=== PATIENT | female | born 1995 | race Caucasian/White ===

== ENCOUNTER → 2018-05-19 12:09 | Outpatient (REF) | payer MEDICAID, SELFPAY ==
[2018-05-19 14:25] LABS: Basophils % 0.2 % (0.1-2.0); Eosinophils # 0.1 K/mm3 (0.0-0.4); Eosinophils % 0.9 % (0.1-12.0); Hematocrit 43.8 % (37.0-47.0); Hemoglobin 14.1 g/dL (12.2-16.2); Lymphocytes # 2.8 K/mm3 (0.7-4.5); Lymphocytes % 31.7 K/mm3 (10-50); Mean Corpuscular HGB Conc 32.1 g/dL (31.8-35.4); Mean Corpuscular Hemoglobin 26.7 pg (27.0-31.2); Mean Corpuscular Volume 83.3 fl (81-99); Mean Platelet Volume 8.5 fl (7.4-10.4); Monocytes # 0.3 K/mm3 (0.1-1.0); Monocytes % 3.1 % (1.7-9.3); Neutrophils # 5.8 K/mm3 (1.8-7.8); Neutrophils % 64.1 % (37.0-80.0); Platelet Count 358 K/mm3 (142-424); Red Blood Count 5.26 M/mm3 (4.20-5.40); Red Cell Distribution Width 13.1 % (11.5-17.5)
[2018-05-19 14:34] LABS: Chol/HDL Ratio 3.8 (1-3.5); Cholesterol 196 mg/dL (140-200); HDL Cholesterol 52 mg/dL (29-89); LDL Cholesterol 114 mg/dL (0-130); Triglycerides 148 mg/dL (30-200); VLDL Cholesterol 30 mg/dL (0-40)
[2018-05-19 15:32] LABS: Alanine Aminotransferase 26 U/L (12-78); Albumin/Globulin Ratio 1.1 (1.1-1.8); Alkaline Phosphatase 74 U/L (46-116); Anion Gap 14.4 mEq/L (5-15); Aspartate Amino Transferase 15 U/L (15-37); Bilirubin,Total 0.3 mg/dL (0.2-1.0); Blood Urea Nitrogen 10 mg/dL (7-18); C-Reactive Protein 0.7 mg/L (0.0-0.9); Calcium 9.3 mg/dL (8.5-10.1); Carbon Dioxide 27 mmol/L (21.0-32.0); Chloride 105 mmol/L (98-107); Estimated Glomerular Filt Rate 105 ml/min (>60); GFR (African American) 127 ML/MIN (>60); Globulin 3.8 gm/dl (1.3-3.2); Glucose 110 mg/dL (74-106); Potassium 4.4 mmoL/L (3.5-5.1); Sodium 142 mmol/L (136-145); T4 (Thyroxine) 10.7 ug/dl (4.7-13.3); Thyroid Stimulating Hormone 1.68 uIU/ml (0.358-3.740); Total Protein,Serum 7.8 gm/dL (6.4-8.2)
[2018-05-19 15:51] LABS: Erythrocyte Sedimentation Rate 15 mm/hr (0-20)
[2018-05-21 12:40] LABS: RA Latex Turbid. <10.0 IU/mL (0.0-13.9); Vitamin D 25 Hydroxy 19.4 ng/mL (30.0-100.0)
[2018-05-21 14:15] LABS: Anti-Jo-1 <0.2 AI (0.0-0.9); Anti-Smith Antibody <0.2 AI (0.0-0.9); Antichromatin Antibodies <0.2 AI (0.0-0.9); Antiscleroderma-70 Antibodies <0.2 AI (0.0-0.9); RNP Antibodies <0.2 AI (0.0-0.9); Sjogren's Anti-SS-A <0.2 AI (0.0-0.9); Sjogren's Anti-SS-B <0.2 AI (0.0-0.9)
[2018-05-22 07:35] LABS: Anti-Centromere B Antibodies <0.2 AI (0.0-0.9); Anti-DNA (DS) Ab Qn <1 IU/mL (0-9)
[2018-05-23 07:01] LABS: Anti-Cyclic Citrullinated Pept 6 units (0-19)
== END ==
LOC: LAB 12:09
PROVIDERS: Visit Provider Physician Assistant
DX: R42 Dizziness and giddiness (principal); Z83.2 Family history of diseases of the blood and blood-forming organs and certain disorders involving the immune mechanism
CPT/HCPCS: 80053; 80061; 82652; 84436; 84443; 85025; 85651; 86140; 86200; 86225; 86235; 86431

== ENCOUNTER → 2019-11-26 16:35 | Outpatient (CLI) | payer MEDICAID, SELFPAY ==
[2019-11-26 17:50] LABS: Thyroid Stimulating Hormone 1.19 uIU/mL (0.465-4.68)
[2019-11-26 18:27] LABS: Basophils % 0.4 % (0.1-2.0); Eosinophils # 0.1 K/mm3 (0.0-0.4); Eosinophils % 1.4 % (0.1-12.0); Hematocrit 38.1 % (37.0-47.0); Hemoglobin 12.4 g/dL (12.2-16.2); Lymphocytes # 3.6 K/mm3 (0.7-4.5); Lymphocytes % 34.7 % (10-50); Mean Corpuscular HGB Conc 32.4 g/dL (31.8-35.4); Mean Corpuscular Hemoglobin 27.4 pg (27.0-31.2); Mean Corpuscular Volume 84.3 fl (81-99); Mean Platelet Volume 8.8 fl (7.4-10.4); Monocytes # 0.3 K/mm3 (0.1-1.0); Monocytes % 3.4 % (1.7-9.3); Neutrophils # 6.2 K/mm3 (1.8-7.8); Neutrophils % 60.2 % (37.0-80.0); Platelet Count 467 K/mm3 (142-424); Red Blood Count 4.52 M/mm3 (4.20-5.40); Red Cell Distribution Width 13.7 % (11.5-17.5); White Blood Count 10.3 K/mm3 (4.8-10.8)
== END ==
PROVIDERS: Visit Provider Physician Assistant
DX: N92.1 Excessive and frequent menstruation with irregular cycle (principal)
CPT/HCPCS: 84443; 85025

== ENCOUNTER → 2019-12-16 12:28 | Outpatient (CLI) | payer MEDICAID, SELFPAY ==
--- NOTE | 2019-12-16 12:28 | US_ITS ---
PROCEDURE: US TRANSVAGINAL CLINICAL INDICATION: menometrorhaggia COMPARISON: No exams were available for comparison FINDINGS: UTERUS: 6cm x x 3cm with a combined endometrial thickness of 5.5mm LEFT OVARY: 6gxf5zaz0.3cm with a volume of 10.6ml. RIGHT OVARY: [id number] with a volume of 52.9ml. There are multiple right ovarian cysts versus a 5 x 3 cm septated ovarian cyst. Blood flow is present in the right ovary. The left ovary has an unremarkable appearance. IMPRESSION: 5 cm septated right ovarian cyst versus multiple small cysts of the right ovary. Suggest 3 month follow-up to confirm stability or resolution. Otherwise negative. Dictated by: Cheng Aggarwal MD 12/16/2019 16:03 Electronically signed by Cheng Aggarwal MD in [place] 12/16/2019 16:03
== END ==
PROVIDERS: PCP Physician Assistant; Visit Provider Physician Assistant
DX: N92.1 Excessive and frequent menstruation with irregular cycle (principal)
CPT/HCPCS: 76830

== ENCOUNTER → 2020-01-21 14:50 | Outpatient (CLI) | payer MEDICAID, SELFPAY ==
--- NOTE | 2020-01-21 14:53 | XR_ITS ---
PROCEDURE: XR ANKLE RT MIN 3V CLINICAL INDICATION: right ankle pain COMPARISON: No exams were available for comparison FINDINGS: No fracture or dislocation. No lytic or blastic change. There is normal mineralization. The joint spaces are well-preserved. No significant degenerative/arthritic changes. No erosive changes evident. Other findings:None. IMPRESSION: No acute findings. Dictated by: Cheng Aggarwal MD 01/21/2020 16:00 Electronically signed by Cheng Aggarwal MD in [facility] 01/21/2020 16:00
== END ==
PROVIDERS: PCP Physician Assistant; Visit Provider Physician Assistant
DX: M25.571 Pain in right ankle and joints of right foot (principal)
CPT/HCPCS: 73610

== ENCOUNTER → 2020-05-25 11:55 | Outpatient (CLI) | payer MEDICAID, SELFPAY ==
--- NOTE | 2020-05-25 12:28 | XR_ITS ---
PROCEDURE: XR LUMBAR SPINE MIN 4V CLINICAL INDICATION: Back pain COMPARISON: No exams were available for comparison FINDINGS: Normal alignment. No fracture or dislocation. No lytic or blastic change. There is mild kyphosis at T12-L1. Lumbar disc spaces are well preserved. IMPRESSION: Mild kyphosis at T12-L1 otherwise negative Dictated by: Cheng Aggarwal MD 05/25/2020 16:09 Cheng Aggarwal MD in [facility] 05/25/2020 16:09
--- NOTE | 2020-05-25 12:28 | XR_ITS ---
PROCEDURE: XR CERVICAL SPINE 4V CLINICAL INDICATION: Back pain Neck pain, chronic neck pain COMPARISON: No exams were available for comparison FINDINGS: Normal alignment. No fracture or dislocation. No lytic or blastic change. The disc spaces are well preserved in the neural foramina are patent. No evidence of cervical rib. No prevertebral soft tissue swelling. Other findings:None. IMPRESSION: Negative cervical spine Dictated by: Cheng Aggarwal MD 05/25/2020 16:06 Cheng Aggarwal MD in [facility] 05/25/2020 16:06
--- NOTE | 2020-05-25 12:28 | XR_ITS ---
PROCEDURE: XR THORACIC SPINE 3V CLINICAL INDICATION: Back pain COMPARISON: No exams were available for comparison FINDINGS: There is very minimal mid thoracic curvature convex right with minimal endplate osteophytes in the midthoracic spine. No acute fracture or dislocation. No lytic or blastic change. IMPRESSION: Minimal degenerative changes midthoracic spine with no acute finding Dictated by: Cheng Aggarwal MD 05/25/2020 16:07 Cheng Aggarwal MD in [facility] 05/25/2020 16:07
[2020-05-25 13:02] LABS: Basophils % 0.2 % (0.1-2.0); Eosinophils # 0.1 K/mm3 (0.0-0.4); Eosinophils % 0.8 % (0.1-12.0); Hematocrit 41.4 % (37.0-47.0); Hemoglobin 13.6 g/dL (12.2-16.2); Lymphocytes % 31.2 % (10-50); Mean Corpuscular HGB Conc 32.9 g/dL (31.8-35.4); Mean Corpuscular Hemoglobin 26.5 pg (27.0-31.2); Mean Corpuscular Volume 80.6 fl (81-99); Mean Platelet Volume 7.4 fl (7.4-10.4); Monocytes # 0.4 K/mm3 (0.1-1.0); Monocytes % 3.8 % (1.7-9.3); Neutrophils # 6.1 K/mm3 (1.8-7.8); Platelet Count 339 K/mm3 (142-424); Red Blood Count 5.14 M/mm3 (4.20-5.40); Red Cell Distribution Width 13.7 % (11.5-17.5); White Blood Count 9.5 K/mm3 (4.8-10.8)
[2020-05-25 13:25] LABS: Alanine Aminotransferase 14 U/L (12-78); Albumin Level 4.5 g/dl (3.5-5.0); Albumin/Globulin Ratio 1.6 (1.1-1.8); Alkaline Phosphatase 66 U/L (38-126); Anion Gap 14.6 mEq/L (5-15); Aspartate Amino Transferase 22 U/L (14-36); Bilirubin,Total 0.3 mg/dl (0.2-1.3); Blood Urea Nitrogen 14 mg/dl (7-17); Calcium 9.9 mg/dl (8.4-10.2); Carbon Dioxide 30 mmol/L (22.0-30.0); Chloride 100 mmol/L (98-107); Estimated Glomerular Filt Rate 123 ml/min (>60); GFR (African American) 149 ML/MIN (>60); Globulin 2.9 g/dL (1.3-3.2); Glucose 123 mg/dl (74-100); Potassium 4.6 mmoL/L (3.5-5.1); Sodium 140 mmol/L (136-145); Total Protein,Serum 7.4 g/dl (6.3-8.2)
[2020-05-25 13:32] LABS: C-Reactive Protein 5.5 mg/L (0-4)
[2020-05-25 14:32] LABS: Erythrocyte Sedimentation Rate 8 mm/hr (0-20)
[2020-05-26 09:23] LABS: RA Latex Turbid. <10.0 IU/mL (0.0-13.9)
[2020-05-27 13:14] LABS: PTT-LA 39.6 sec (0.0-51.9); dRVVT 46.2 sec (0.0-47.0)
[2020-05-27 16:35] LABS: Anti-Centromere B Antibodies <0.2 AI (0.0-0.9); Anti-Jo-1 <0.2 AI (0.0-0.9); Anti-Smith Antibody <0.2 AI (0.0-0.9); Antichromatin Antibodies <0.2 AI (0.0-0.9); Antiscleroderma-70 Antibodies <0.2 AI (0.0-0.9); RNP Antibodies <0.2 AI (0.0-0.9); Sjogren's Anti-SS-A <0.2 AI (0.0-0.9); Sjogren's Anti-SS-B <0.2 AI (0.0-0.9)
[2020-05-28 18:13] LABS: Anti-Cyclic Citrullinated Pept 4 units (0-19); Anti-DNA (DS) Ab Qn <1 IU/mL (0-9); Lupus Reflex Interpretation Comment: (.)
== END ==
PROVIDERS: PCP Physician Assistant; Visit Provider Physician Assistant
DX: M54.2 Cervicalgia (principal); M54.6 Pain in thoracic spine; M25.50 Pain in unspecified joint; M54.9 Dorsalgia, unspecified
CPT/HCPCS: 36415; 72050; 72072; 72110; 80053; 85025; 85613; 85651; 86140; 86200; 86225; 86235; 86431

== ENCOUNTER → 2020-06-09 13:16 | Outpatient (CLI) | payer MEDICAID, SELFPAY ==
--- NOTE | 2020-06-09 13:18 | US_ITS ---
PROCEDURE: US TRANSVAGINAL CLINICAL INDICATION: OVARIAN CYST Follow-up ovarian cyst COMPARISON: US US TRANSVAGINAL from 12/16/2019 FINDINGS: The uterus is 8 x 4 x 4 cm with a combined endometrial thickness of 9 mm. No uterine mass evident. The left ovary has an unremarkable appearance measuring 3.5 x 3.4 cm. The right ovary is enlarged at 6 x 4 cm containing 3 cysts versus a septated cyst at 5.5 x 3.7 cm. This previously measured 4.9 x 3.3 cm. No cul-de-sac fluid is evident. IMPRESSION: Three cysts versus a single septated cyst of the right ovary slightly more prominent compared to the previous exam. Dictated by: Cheng Aggarwal MD 06/13/2020 06:30 Cheng Aggarwal MD in [place] 06/13/2020 06:30
== END ==
PROVIDERS: PCP Physician Assistant; Visit Provider Physician Assistant
DX: N83.201 Unspecified ovarian cyst, right side (principal)
CPT/HCPCS: 76830

== ENCOUNTER 2020-09-19 10:18 | Emergency (ER) | payer MEDICAID, SELFPAY ==
[2020-09-19 10:35] VITALS: BP 132/89; PULSE 106; RESP 20; TEMP 36.7; O2SAT 98; BMI 52.7
--- NOTE | 2020-09-19 11:06 | HMH.EDUTC ---
[facility] [place] Disposition Clinical Impression: Exposure to COVID-19 virus Disposition: Home, Self-Care Condition on Discharge: Good Instructions: Preventing the Spread of Coronavirus Discharge Instructions Additional Instructions: Drink plenty of fluids. Take tylenol for pain or fever. Return if you begin to have difficulty breathing. Follow up with your regular doctor. GO TO THE ER FOR ANY WORSENING SYMPTOMS Referrals: Yvonne Frank PA [Primary Care Provider] - Forms: Work/School Release Time of Disposition: 11:08 Medical Decision Making - Medical Records Medical records reviewed: No: I reviewed the patient's medical records. - Bao Inquiry Pt receiving controlled substance: No Vital Signs: 09/19/20 10:35 Temperature 98.1 F Temperature Source Oral Pulse Rate [Right Brachial] 106 H Respiratory Rate 20 Blood Pressure [Right Arm] 132/89 Blood Pressure Mean [Right Arm] 103 Blood Pressure Source [Right Arm] Automatic Cuff Blood Pressure Position [Right Arm] Sitting 02 Sat by Pulse Oximetry 98 Oxygen Delivery Method Room Air Orders (Tests/Meds): ORDERS Category Date Time Status Covid-19 Nasal PCR ([facility]) Routine Lab 09/19/20 10:40 Received [facility] [place] HPI - General Stated complaint: covid exposure Time Seen by Provider: 09/19/20 11:06 Mode of Arrival: Ambulatory Source of Information: Patient Limitations: No Limitations Description of Symptoms (Recalled from Triage Doc. by RN): COVID TEST D/T EXPOSURE. DENIES SYMPTOMS HEENT Symptoms (Recalled from RN notes): No Resp Symptoms (Recalled from RN notes): No Skin Symptoms (Recalled from RN notes): No MS Symptoms (Recalled from RN notes): No Functional Status (Recalled from RN notes): WNL - History of Present Illness Provider Complaint: She states that she was exposed to covid-19 at her job last week. She denies any symptoms so far, but she was sent here to be tested. - Related Data Previous Rx's Medication Instructions Recorded meloxicam 7.5 mg tablet 7.5 mg PO DAILY #30 tab 06/01/20 norgestimate 0.18 mg/0.215 mg/0.25 1 tab PO DAILY #28 tab 06/30/20 mg-ethinyl estradiol 25 mcg tablet etonogestrel 0.12 mg-ethinyl 1 vag ring VAGINAL Q4W #3 each 07/11/20 estradiol 0.015 mg/24 hr vaginal ring Allergies Allergy/AdvReac Type Severity Reaction Status Date / Time calamine AdvReac Severe Skin Verified 07/11/20 13:58 [From Calamine Plus Swelling (pramox-calamin)] pramoxine AdvReac Severe Skin Verified 07/11/20 13:58 [From Calamine Plus Swelling (pramox-calamin)] - Worker's Comp Is this a Worker's Comp case?: No [facility] History - Hepatitis A Screen Drug use history?: No High risk sexual behaviors?: No History of sexually transmitted infection?: No Currently employed?: No Childcare worker?: No Do you have indoor plumbing?: Yes Do you have electricity?: Yes Attestation statement:: This patient has been screened for Hepatitis A risk factors. I have reviewed the patient's past medical history: Yes Medical History: Denies:: Cancer, Diabetes Mellitus Type 1, Diabetes Mellitus Type 2, Hypertension, Internal Pacemaker, MRSA Laterality Cases: Bilateral: Other Other Surgeries: Yes: Other (two left eye surgeries ([age]yo), needed a 3rd but didn't see the point ). No: Pacemaker Amputation: No Fractures: No Comment: eye surgery - Social History Smoking Status: Never smoker Alcohol Intake: never Alcohol Intake Frequency:: a few times a month Substance Use Type: denies use Occupational Status: other Housing: house Household Members: family Family Hx:: Diabetes, Heart Attack, Stroke, Thyroid Disorder, Hypertension, Hyperlipidemia, Anemia ROS Obtained: Yes All systems reviewed & no additional complaints - Constitutional Constitutional: Reports system reviewed and no additional complaints, except as docu - Eyes Eyes: Reports system reviewed and no additional complaints, except as docu - ENT Ears,
[2020-09-19 11:08] VITALS: BP 132/89; PULSE 106; RESP 20; TEMP 36.7; O2SAT 98
== END 2020-09-19 11:10 | disposition home or self-care (01) ==
PROVIDERS: Emergency Provider Nurse Practitioner Family; PCP Physician Assistant
DX: Z20.822 Contact with and (suspected) exposure to COVID-19 (principal)
CPT/HCPCS: 99202; G0463; U0003

== ENCOUNTER → 2020-10-12 13:38 | Outpatient (CLI) | payer MEDICAID, SELFPAY ==
--- NOTE | 2020-10-12 13:38 | US_ITS ---
PROCEDURE: US TRANSVAGINAL CLINICAL INDICATION: 3 mo f/u US- right ovarian cyst COMPARISON: US US TRANSVAGINAL from 12/16/2019 US US TRANSVAGINAL from 06/09/2020 FINDINGS: UTERUS: 7cm x 5cmx 4cm with a combined endometrial thickness of 10.5mm LEFT OVARY: [id number] with a volume of 4.5ml. RIGHT OVARY: [id number] with a volume of 66.1ml. Right ovary is once again noted to be involved by a septated cyst which measures 5.4 x 3.4 cm overall not significantly changed. This could be due to 1 septated cyst or multiple small cyst. None the less, there has been no significant change. Blood flow is present. The left ovary has an unremarkable appearance. IMPRESSION: No change in large right ovary with multiple small cysts versus a septated cyst. Dictated by: Cheng Aggarwal MD 10/12/2020 16:52 Cheng Aggarwal MD in [place] 10/12/2020 16:52
== END ==
PROVIDERS: PCP Physician Assistant; Visit Provider Obstetrics & Gynecology
DX: N83.201 Unspecified ovarian cyst, right side (principal)
CPT/HCPCS: 76830

== ENCOUNTER 2024-05-23 10:14 | Outpatient (CLI) | payer SELFPAY ==
[2024-05-23 11:51] LABS: HCG,Quantitative 3095 mIU/ml (0-5.42)
[2024-05-24 09:09] LABS: Progesterone 7.5 ng/mL (.)
== END 2024-05-23 23:59 | disposition home or self-care (01) ==
PROVIDERS: PCP Physician Assistant; Visit Provider Obstetrics & Gynecology
DX: Z34.90 Encounter for supervision of normal pregnancy, unspecified, unspecified trimester (principal)
CPT/HCPCS: 36415; 84144; 84702

== ENCOUNTER 2024-05-26 08:15 | Outpatient (CLI) | payer SELFPAY ==
[2024-05-26 10:52] LABS: HCG,Quantitative 8291 mIU/ml (0-5.42)
== END 2024-05-26 23:59 | disposition home or self-care (01) ==
LOC: LAB 08:16
PROVIDERS: PCP Physician Assistant; Visit Provider Obstetrics & Gynecology
DX: Z34.90 Encounter for supervision of normal pregnancy, unspecified, unspecified trimester (principal)
CPT/HCPCS: 36415; 84702

== ENCOUNTER 2024-06-04 09:06 | Outpatient (CLI) | payer SELFPAY ==
[2024-06-04 10:30] LABS: HCG,Quantitative 41103 mIU/ml (0-5.42)
== END 2024-06-04 23:59 | disposition home or self-care (01) ==
LOC: LAB 09:07
PROVIDERS: PCP Physician Assistant; Visit Provider Obstetrics & Gynecology
DX: O03.9 Complete or unspecified spontaneous abortion without complication (principal)
CPT/HCPCS: 36415; 84702

== ENCOUNTER 2024-06-08 08:37 | Outpatient (CLI) | payer SELFPAY ==
[2024-06-08 10:41] LABS: HCG,Quantitative 66293 mIU/ml (0-5.42)
== END 2024-06-08 23:59 | disposition home or self-care (01) ==
LOC: LAB 08:38
PROVIDERS: Obstetrics & Gynecology; PCP Physician Assistant; Visit Provider Physician Assistant
DX: Z34.90 Encounter for supervision of normal pregnancy, unspecified, unspecified trimester (principal)
CPT/HCPCS: 36415; 84702

== ENCOUNTER 2024-06-10 10:17 | Outpatient (CLI) | payer OTHER, SELFPAY ==
[2024-06-10 11:45] LABS: Basophils % 0.2 % (0.1-2.0); Eosinophils # 0.1 K/mm3 (0.0-0.4); Eosinophils % 0.4 % (0.1-12.0); Hematocrit 33.5 % (37.0-47.0); Hemoglobin 9.3 g/dL (12.2-16.2); Lymphocytes % 16.1 % (10-50); Mean Corpuscular HGB Conc 27.8 g/dL (31.8-35.4); Mean Corpuscular Hemoglobin 19.7 pg (27.0-31.2); Mean Platelet Volume 6.7 fl (7.4-10.4); Monocytes # 0.5 K/mm3 (0.1-1.0); Monocytes % 3.6 % (1.7-9.3); Neutrophils # 9.9 K/mm3 (1.8-7.8); Neutrophils % 79.7 % (37.0-80.0); Platelet Count 447 K/mm3 (142-424); Red Blood Count 4.72 M/mm3 (4.20-5.40); Red Cell Distribution Width 18.8 % (11.5-17.5); White Blood Count 12.4 K/mm3 (4.8-10.8)
[2024-06-10 11:55] LABS: HIV (1&2) Antibody Rapid NONREACTIVE (NONREACTIVE)
[2024-06-10 14:10] LABS: Ferritin 4.79 ng/ml (6.24-137)
[2024-06-11 05:22] LABS: HCV Ab Non Reactive (Non Reactive); Hepatitis B Surface Antigen Negative (Negative)
[2024-06-11 06:15] LABS: Rubella Antibodies, IgG <0.90 index (Immune >0.99)
[2024-06-11 12:14] LABS: Rapid Plasma Reagin Ab Titer Non Reactive titer (NonRea<1:1)
== END 2024-06-10 23:59 | disposition home or self-care (01) ==
LOC: LAB 13:09
PROVIDERS: PCP Physician Assistant; Visit Provider Obstetrics & Gynecology
DX: Z34.81 Encounter for supervision of other normal pregnancy, first trimester (principal)
CPT/HCPCS: 36415; 82728; 85025; 86593; 86762; 86803; 86850; 87086; 87340; 87389

== ENCOUNTER 2024-08-06 05:37 | Observation (INO) | payer OTHER, SELFPAY ==
[2024-08-06 05:45] VITALS: BP 140/93; PULSE 140; RESP 24; TEMP 36.7; O2SAT 96; BMI 35.2
--- NOTE | 2024-08-06 05:50 | PC.NURSE ---
Pt G-1 P-0 AB-0 Pt states she is 15 weeks and last night when she was pushing to have a bowel movement she felt something give way Denies vaginal bleeding. States she feels like something is protruding from her vagina. Skin pink warm and dry Resp tachypnic and full. Speech clear and appropriate. Pt has very poor eye contact.
--- NOTE | 2024-08-06 06:03 | HMH.EDGENADL ---
Discharge Plan Disposition Patient Disposition: Admitted Chief Complaint: Vaginal Bleeding Clinical Impressions Clinical Impression: Incomplete Discharge ED Provider: Jair Olivo General Adult HPI General Chief complaint: Vaginal Bleeding Stated complaint: possible miscarriage Time Seen by Provider: 08/06/24 05:40 Mode of Arrival: Ambulatory Source of Information: Patient Limitations: No Limitations Description of Symptoms (Recalled from ER Triage Doc. by RN): Pt states she was pushing to have a bowel movement and felt something give way History of Present Illness HPI narrative: 29-year-old female presents with concern for bulge within her vagina. She reports that she has been constipated for the last week or so and last night she was trying to have a bowel movement when she felt a gush of fluid from her vagina. When she used her fingers, she could feel something within the vaginal canal. She reports no bleeding, denies any significant pain. Related Data Home Medications ?Medication ?Instructions ?Recorded ?Confirmed docosahexaenoic acid 200 mg mg PO 06/10/24 07/16/24 capsule ( DHA) Previous Rx's ?Medication ?Instructions ?Recorded ferrous sulfate 325 mg (65 mg 325 mg PO DAILY #30 tabs 06/10/24 iron) tablet Allergies Allergy/AdvReac Type Severity Reaction Status Date / Time calamine (From Calamine Plus AdvReac Severe Skin Verified 06/10/24 08:41 (pramox-calamin)) Swelling pramoxine (From Calamine AdvReac Severe Skin Verified 06/10/24 08:41 Plus (pramox-calamin)) Swelling PFSH PFSH Disclaimer: The information contained in this section may have been updated after the patient was seen, as this information can be updated by other users. Medical History (Updated 08/06/24 @ 06:25 by Jair Olivo MD) Vitamin D deficiency (~05/21/18) Surgical History (Updated 06/10/24 @ 08:42 by Harsha Blanco MA) Hx of eye surgery Family History (Updated 06/10/24 @ 08:43 by Harsha Blanco MA) Other Cancer Social History Smoking Status: Never smoker alcohol intake: never substance use type: denies use current occupational status: other household members: family housing: house caffeine: No Other Medical History Have you received the Flu Vaccine for this season: No Have you received the Pneumonia Vaccine: No ROS Obtained: Yes All systems reviewed & no additional complaints except as documented Physical Exam General General appearance: alert and in no apparent distress Head Head exam: atraumatic and normocephalic Eye Eye exam: Present normal appearance, PERRL and EOMI ENT ENT exam: Present normal oropharynx and normal external ear exam Neck Neck exam: Present normal inspection and full ROM Chest Chest inspection: Present normal inspection and symmetric chest wall rise; Absent tenderness Respiratory Respiratory exam: Present normal lung sounds bilaterally; Absent respiratory distress Cardiovascular Cardiovascular exam: Present regular rate and normal rhythm Abdominal Exam Abdominal exam: Present soft; Absent distention, tenderness or guarding Comment: Gravid Speculum exam: Present other (Deferred) Extremities Exam Extremities exam: Present normal inspection; Absent edema or joint swelling Back Exam Back exam: Present normal inspection; Absent tenderness Neurological Exam Neurological exam: Present alert and oriented X3; Absent motor sensory deficit Psychiatric Psychiatric exam: Present normal affect and normal mood Skin Skin exam: Present warm, dry and normal color Lymphatic Lymphatic Findings: no adenopathy Medical Decision Making Medical Records Medical records reviewed: Yes I reviewed the patient's medical records. Screening: Per USPSTF and CDC recommendations, given the prevalence of disease in our region, it is our hospital?s policy to screen for HIV and viral Hepatitis for all patients aged 18 and over and those with ongoing risk factors. Bao Inquiry Pt receiving controlled substance: No Bao was queried for this patient: No Vital Signs: 08/06/24 05:45 Temperature 98.0 F Temperature Source Oral Pulse Rate [Right Brachial] 140 H Respiratory Rate 24 Blood Pressure [Right Arm] 140/93 H Blood Pressure Mean [Right Arm] 108 Blood Pressure Source [Right Arm] Automatic Cuff Blood Pressure Position [Right Arm] Sitting 02 Sat by Pulse Oximetry 96 Oxygen Delivery Method Room Air Lab Data Lab results reviewed: Yes I reviewed the patient's lab results. Orders (Tests/Meds): ED MEDICATIONS Generic Name Dose Route Start Last Admin Trade Name Freq PRN Reason Stop Dose Admin Acetaminophen 650 mg 08/06/24 06:11 Acetaminophen 325mg Tab PO 09/05/24 06:10 Q6HP PRN Fever or Mild Pain (1-3) ORDERS Category Date Time Status CBC w/Auto Diff [Complete Blood Count Auto Diff] Stat Lab 08/06/24 06:09 Ordered CMP [Comprehensive Metabolic Panel] Stat Lab 08/06/24 06:09 Ordered HCG Qualitative, Serum Stat Lab 08/06/24 06:09 Stop Req HCG,Quantitative Stat Lab 08/06/24 06:10 Ordered Medical Decision Narrative: 29-year-old female, 15 weeks with first presents after gush of fluid and sensation of bulge in her vagina after bearing down to have a bowel movement last night. History was obtained via interactive discussion with patient. On arrival, patient is [afebrile, hemodynamically stable, satting appropriately, alert, oriented x4, GCS 15], moving all extremities spontaneously. Physical exam performed (minus the exam) and significant for no significant abnormalities. Bedside transabdominal ultrasound was performed and shows a mostly empty uterus. The head remains within the uterus, the rest of the fetus appears to be within the vaginal canal. No heartbeat noted. This is consistent with an incomplete . I had a interactive discussion with HEATER FURNACE on-call who accepted patient for admission. Basic labs ordered but not resulted prior to admission. Procedures Risk/Benefits of Procedure(s) Were Explained: Yes Critical Care Critical Care Time Critical Care Time: No
--- NOTE | 2024-08-06 06:04 | PC.NURSE ---
Accompanied MD for ultrasound Pt informed by MD that she is having a miscarriage and it is not complete. Pt tearful Consoled patient and significant other.
--- NOTE | 2024-08-06 06:08 | PC.NURSE ---
Dr. Olivo speaking to Dr. Dominguez at this time for admission to OB department. counselor supervisor notified
--- NOTE | 2024-08-06 06:12 | PC.NURSE ---
Last type and screen was 06/10/2024 of this year. Patient is A+
--- NOTE | 2024-08-06 06:17 | PC.NURSE ---
Report received from Letitia Don RN
--- NOTE | 2024-08-06 06:17 | PC.NURSE ---
Report called to KASSI Lipscomb
[2024-08-06 06:21] VITALS: BP 140/93; PULSE 119; RESP 20; TEMP 36.6; O2SAT 98
--- NOTE | 2024-08-06 06:30 | PC.NURSE ---
Pt arrived to unit, very tearful and states she is numb
--- NOTE | 2024-08-06 06:30 | EXP.HP ---
History of Present Illness *Admission Date: 08/06/24 *Reason for visit:: incomplete *History of present illness: Liseth Perez is a 29yo presenting from the ED for an incomplete . Reports she has been constipated and around 10 PM last night, 08/05/2024 she went to the bathroom to have a bowel movement and had a large pop. Stated that she was just going to go to sleep and when she woke up this morning she still did not feel right and had a gush of fluid. Presented to the ED around 5 AM. She denies any vaginal bleeding. Patients family report she has a sister that lost two at 17 weeks gestation [facility] Disclaimer: The information contained in this section may have been updated after the patient was seen, as this information can be updated by other users. Medical History (Updated 08/06/24 @ 06:25 by Jair Olivo MD) Vitamin D deficiency (~05/21/18) Surgical History Hx of eye surgery Family History Other Cancer Social History Smoking Status: Never smoker alcohol intake: never substance use type: denies use current occupational status: other household members: family housing: house caffeine: No Other Medical History Have you received the Flu Vaccine for this season: No Have you received the Pneumonia Vaccine: No Review of Systems Review of Systems Review of systems (narrative): Review of Systems Constitutional: Denies fever, chills, and sweats Eyes: Denies vision change/ pain Respiratory: Denies cough and shortness of breath Cardiovascular: Denies chest pain and lightheadedness Gastrointestinal: Denies abdominal pain. denies contractions. Denies nausea, vomiting. Genitourinary: Denies dysuria and incontinence Musculoskeletal: Denies shoulder pain and back pain Neurological: Denies change in speech or headaches Meds Home Medications and Allergies Home Medications ?Medication ?Instructions ?Recorded ?Confirmed ?Type docosahexaenoic acid 200 mg 200 mg PO DAILY 06/10/24 08/06/24 History capsule ( DHA) ferrous sulfate 325 mg (65 mg 325 mg PO DAILY #30 tabs 06/10/24 08/06/24 Rx iron) tablet New Prescriptions to Start Prescriptions: Allergies Allergy/AdvReac Type Severity Reaction Status Date / Time calamine (From Calamine Plus AdvReac Severe Skin Verified 06/10/24 08:41 (pramox-calamin)) Swelling pramoxine (From Calamine AdvReac Severe Skin Verified 06/10/24 08:41 Plus (pramox-calamin)) Swelling Exam Data for Last 24 hours Vital signs and Labs for Last 24 Hours: Temp Pulse Resp BP Pulse Ox O2 Del Method 98 F 119 H 20 140/93 H 96 Room Air 08/06/24 06:21 08/06/24 06:21 08/06/24 06:21 08/06/24 06:21 08/06/24 05:45 08/06/24 06:21 I & O for Last 24 hours: Intake & Output 08/03/24 08/04/24 08/05/24 08/06/24 23:59 23:59 23:59 23:59 Weight 180 lb Narrative: General: patient is alert oriented in no acute distress and responds appropriately to questions. HEENT: NCAT, EOMI, moist mucous membranes, neck supple with full ROM Cardiovascular: RRR +S1/S2, no murmurs or rubs Pulmonary: Clear to auscultation bilaterally, nonlabored breathing, symmetric chest rise Abdominal: Gravid abdomen appropriate for gestation. No guarding, rebound, or tenderness noted. SSE: On exam cervix noted to be dilated. feet noted in vaginal canal. no amniotic sac noted Extremities: trace edema, no tenderness or cyanosis noted Skin: Normal turgor, intact, warm. Negative for erythema, pallor, petechia, or lesions Neurologic: Negative for sensory or motor deficit Psychiatric: Normal affect, normal thought process, good judgment and insight, no depression or anxious mood appreciated. *Routine HEENT Exam Head: Present normocephalic and atraumatic Eye: Present EOMI, PERRL and normal accommodation; Absent conjunctival icterus, scleral injection, nystagmus or exophthalmos ENT: Present mucous membranes moist *Routine Respiratory Exam Respiratory: Present CTA bilaterally, normal respiratory effort, able to speak in complete sentences and symmetric chest movement; Absent accessory muscle use, decreased breath sounds, rales, respiratory distress, wheezes, distant breath sounds or diminished air movement *Routine Cardiovascular Exam Cardiovascular: Present Normal S1, Normal S2 and tachycardia; Absent murmur or gallop *Routine Abdominal Exam Abdominal: Present soft and normoactive bowel sounds; Absent tenderness, distended, rebound or guarding *Routine Rectal Exam Rectal:: deferred *Routine Genitalia Exam Genitalia:: normal female Assessment and Plan *Assessment and plan (1) Incomplete : Status: Acute Category: Medical Code(s): O03.4 - Incomplete spontaneous without complication Plan Per ED report on ultrasound there were no heart tones Official ultrasound ordered for evaluation and location of placenta Will give 600 mcg of p.o. Cytotec followed by 400 every 8 hours. Max dose of 1400 mcg in a 24-hour timeframe Will give 10 units IM of Pitocin with delivery of infant Will do 250 mcg of Hemabate every 20 minutes following delivery of Will order alprazolam 0.25 mg every 8 hours as needed anxiety DIC labs ordered CBC and CMP ordered Type and cross ordered discussed screening for cervical incompetence with next especially with newly found family hx. discussed options after delivery including burial, cremation and hospital disposal and family is leaning towards hospital management reviewed extensively this wasnt liseth fault and theres nothing we could have done last night or today to prevent this. asked to discuss putting the infant back in the womb and discussed that was not a possibilty. reviewed all their questions and concerns in detail and to their satisfaction #Microcytic anemia -Noted during . -On arrival appropriate hemoglobin at 12.9. Above labs ordered -Currently tachycardic from anxiety but otherwise vital signs stable
[2024-08-06 06:38] LABS: Basophils # 0.1 K/mm3 (0-0.2); Basophils % 0.4 % (0.1-2.0); Eosinophils # 0.2 K/mm3 (0.0-0.4); Hematocrit 38.6 % (37.0-47.0); Hemoglobin 12.9 g/dL (12.2-16.2); Lymphocytes # 2.8 K/mm3 (0.7-4.5); Lymphocytes % 16.9 % (10-50); Mean Corpuscular HGB Conc 33.4 g/dL (31.8-35.4); Mean Corpuscular Hemoglobin 25.6 pg (27.0-31.2); Mean Corpuscular Volume 76.7 fl (81-99); Mean Platelet Volume 7.5 fl (7.4-10.4); Monocytes # 0.5 K/mm3 (0.1-1.0); Monocytes % 2.9 % (1.7-9.3); Neutrophils # 13.1 K/mm3 (1.8-7.8); Neutrophils % 78.8 % (37.0-80.0); Platelet Count 317 K/mm3 (142-424); Red Blood Count 5.03 M/mm3 (4.20-5.40); Red Cell Distribution Width 19.6 % (11.5-17.5); White Blood Count 16.6 K/mm3 (4.8-10.8)
[2024-08-06 06:39] LABS: MANUAL DIFFERENTIAL MANUAL DIFFERENTIAL (MANUAL DIFF)
[2024-08-06 06:43] LABS: Alanine Aminotransferase 27 U/L (12-78); Albumin Level 4.1 g/dl (3.5-5.0); Albumin/Globulin Ratio 1.3 (1.1-1.8); Alkaline Phosphatase 63 U/L (38-126); Anion Gap 16.6 mEq/L (5-15); Aspartate Amino Transferase 26 U/L (14-36); Bilirubin,Total 0.4 mg/dl (0.2-1.3); Blood Urea Nitrogen 7 mg/dl (7-17); Calcium 9.2 mg/dl (8.4-10.2); Carbon Dioxide 19 mmol/L (22.0-30.0); Chloride 106 mmol/L (98-107); Creatinine Clearance Estimated 267 mL/min (50-200); Estimated Glomerular Filt Rate 189 ml/min (>60); GFR (African American) 228 ML/MIN (>60); Globulin 3.2 g/dL (1.3-3.2); Glucose 100 mg/dl (74-100); Potassium 3.6 mmoL/L (3.5-5.1); Sodium 138 mmol/L (136-145); Total Protein,Serum 7.3 g/dl (6.3-8.2)
[2024-08-06 06:54] VITALS: BP 142/96; PULSE 129; RESP 18; TEMP 36.8; O2SAT 97
--- NOTE | 2024-08-06 07:00 | PC.NURSE ---
Dr. Wu at bedside performing exam.
--- NOTE | 2024-08-06 07:09 | US_ITS ---
PROCEDURE INFORMATION: Exam: US , Limited Exam date and time: 08/06/2024 7:33 AM Age: 29 years old Clinical indication: Lmp or gestational age (in weeks): 15 weeks 5 days; Other: demise; TECHNIQUE: Imaging protocol: Real-time ultrasound of the maternal uterus with image documentation. Exam focused on the clinical indication. COMPARISON: US TRANSVAGINAL 10/12/2020 2:21 PM FINDINGS: Gestation: Intrauterine gestation. heart rate: No cardiac motion is seen. Placenta: Posterior placenta. MATERNAL: Cervix: The fetus appears to be in breech position and located within the cervical canal and vagina. IMPRESSION: Findings are consistent with demise. The fetus appears to be in breech position and located within the cervical canal and vagina.
--- NOTE | 2024-08-06 07:13 | PC.NURSE ---
Report given to Aleida SOLITARIO
[2024-08-06 07:49] LABS: Alanine Aminotransferase 26 U/L (12-78); Anion Gap 13.7 mEq/L (5-15); Aspartate Amino Transferase 32 U/L (14-36); Blood Urea Nitrogen 7 mg/dl (7-17); Calcium 9.2 mg/dl (8.4-10.2); Carbon Dioxide 20 mmol/L (22.0-30.0); Chloride 107 mmol/L (98-107); Creatinine Clearance Estimated 214 mL/min (50-200); Estimated Glomerular Filt Rate 146 ml/min (>60); GFR (African American) 177 ML/MIN (>60); Glucose 92 mg/dl (74-100); Potassium 3.7 mmoL/L (3.5-5.1); Sodium 137 mmol/L (136-145); Uric Acid 4.1 mg/dl (2.5-6.2)
[2024-08-06 08:02] LABS: HCG,Quantitative 36597 mIU/ml (0-5.42)
[2024-08-06] MEDS: miSOPROStoL 200 MCG TABLET 600 MCG PO (08:02)
[2024-08-06 08:06] LABS: Activated Partial Thrombo Time 29.3 seconds (22.8-30.6); Fibrinogen 420 mg/dL (229.9-363.5); INR 0.89 (0.9-1.1); Prothrombin Time 10.1 seconds (10.1-12.5)
[2024-08-06] MEDS: ALPRAZolam 0.25MG TABLET 0.25 MG PO (08:10)
[2024-08-06 08:37] LABS: Eosinophils % 1 % (0-3); Hypochromasia 1+; Lymphocytes % 25 % (10-50); Monocytes % 2 % (2-9); Neutrophils % 72 % (42-76); Platelet Estimate Normal; Total Cells Counted 100
[2024-08-06 09:04] VITALS: BP 124/81; PULSE 116; RESP 18; TEMP 36.8; O2SAT 100; BMI 35.3
[2024-08-06] MEDS: ACETAMINOPHEN 325MG TAB 650 MG PO ×2 (09:14→16:39)
[2024-08-06] MEDS: OXYTOCIN 10 UNITS/ML VIAL 10 UNIT IM (09:20)
[2024-08-06] MEDS: [UNRECOGNIZED DRUG - OTHER] 250 MCG IM ×2 (09:28→10:53)
[2024-08-06] MEDS: IBUPROFEN 400 MG TABLET 800 MG PO (10:50)
[2024-08-06] MEDS: LOPERAMIDE 2MG CAPSULE 4 MG PO (10:53)
[2024-08-06 11:21] LABS: Basophils % 0.3 % (0.1-2.0); Eosinophils # 0.1 K/mm3 (0.0-0.4); Eosinophils % 0.4 % (0.1-12.0); Hemoglobin 12.6 g/dL (12.2-16.2); Lymphocytes # 1.7 K/mm3 (0.7-4.5); Lymphocytes % 11.2 % (10-50); Mean Corpuscular HGB Conc 33.1 g/dL (31.8-35.4); Mean Corpuscular Hemoglobin 26.5 pg (27.0-31.2); Mean Platelet Volume 8.8 fl (7.4-10.4); Monocytes # 0.4 K/mm3 (0.1-1.0); Monocytes % 2.6 % (1.7-9.3); Neutrophils # 13.2 K/mm3 (1.8-7.8); Neutrophils % 85.6 % (37.0-80.0); Platelet Count 349 K/mm3 (142-424); Red Blood Count 4.75 M/mm3 (4.20-5.40); Red Cell Distribution Width 19.8 % (11.5-17.5); White Blood Count 15.5 K/mm3 (4.8-10.8)
--- NOTE | 2024-08-06 11:23 | EXP.DN ---
Delivery Note Delivery Date:: 08/06/24 Delivery Time:: 09:16 Was labor medically induced?: No Gestational age (weeks): 15 Infant delivered prior to 39 weeks?: Yes Infant Gender: Female at 1 minute: 0 at 5 minutes: 0 Delivery Procedure:: Preoperative diagnosis: 1. at 15 completed this weeks gestation, breech 2. Rh positive 3. Intrauterine demise Postoperative diagnosis: 1. at 15 completed this weeks gestation, breech 2. Rh positive 3. Intrauterine demise 4. Normal appearing fetus EBL: 400mL Specimen: 1. nonviable female . 2. placenta Findings: 1. Non-viable female infant: Diana Osborn. Apgars 0/0 at 1 and 5 minutes respectively. Weight 85g Complications: None Sinai Perez is a 29yo who presented to the ED today and was diagnosed with an incomplete . On my evaluation the feet and buttocks were in the vagina. No cardiac activity dectected on US x2. She was given 600mcg of PO cytotec and 10U IM pitocin. The fetus delivered. She was given 250mcg of Hemabate to assist with delivery of the placenta. The placenta delivered and she was given one additional dose of hematbate for hemorrhage prophylaxis. Bedside US was completed and it appeared she had passed all uterine contents. She will be given a normal diet and monitored for a minimum of 8 hours. Pt desires discharge home. We will evaluate her bleeding to determine if she is stable. At this time she did not want to hold the fetus. We will take pictures for the family if they desire they want them at a later time. Placenta sent for further evaluation. Family is considering cremation of the infant Placental Delivery Description: Spontaneous
[2024-08-06] MEDS: LOPERAMIDE 2MG CAPSULE 2 MG PO (13:35)
[2024-08-06 16:38] VITALS: BP 129/82; PULSE 113; RESP 16; TEMP 36.7; O2SAT 98
[2024-08-06] MEDS: miSOPROStoL 200 MCG TABLET PO (16:39)
--- NOTE | 2024-08-06 17:43 | P.DS_ITS ---
General Admission date:: 08/06/24 Discharge date: 08/06/24 HPI HPI HPI: Sinai Perez is a 29yo presenting from the ED for an incomplete . Reports she has been constipated and around 10 PM last night, 08/05/2024 she went to the bathroom to have a bowel movement and had a large pop. Stated that she was just going to go to sleep and when she woke up this morning she still did not feel right and had a gush of fluid. Presented to the ED around 5 AM. She denies any vaginal bleeding. Patients family report she has a sister that lost two at 17 weeks gestation Hospital Course Hospital Course Hospital Course: Delivery Date:: 08/06/24 Delivery Time:: 09:16 Was labor medically induced?: No Gestational age (weeks): 15 delivered prior to 39 weeks?: Yes Gender: Female at 1 minute: 0 at 5 minutes: 0 Delivery Procedure:: Preoperative diagnosis: 1. at 15 completed this weeks gestation, breech 2. Rh positive 3. Intrauterine demise Postoperative diagnosis: 1. at 15 completed this weeks gestation, breech 2. Rh positive 3. Intrauterine demise 4. Normal appearing fetus EBL: 400mL Specimen: 1. nonviable female . 2. placenta Findings: 1. Non-viable female : Diana Osborn. Apgars 0/0 at 1 and 5 minutes respec tively. Weight 85g Complications: None Sinai Perez is a 29yo who presented to the ED today and was diagnosed with an incomplete . On my evaluation the feet and buttocks were in the vagina. No cardiac activity dectected on US x2. She was given 600mcg of PO cytotec and 10U IM pitocin. The fetus delivered. She was given 250mcg of Hemabate to assist with delivery of the placenta. The placenta delivered and she was given one additional dose of hematbate for hemorrhage prophylaxis. Bedside US was completed and it appeared she had passed all uterine contents. She will be given a normal diet and monitored for a minimum of 8 hours. Pt desires discharge home. We will evaluate her bleeding to determine if she is stable. At this time she did not want to hold the fetus. We will take pictures for the family if they desire they want them at a later time. Placenta sent for further evaluation. Family is considering cremation of the infant Placental Delivery Description: Spontaneous She was discharged after being closely monitored and with strict return precautions. Pt was very adamant about going home and voiced understanding of when to return. She has follow up scheduled on 08/12/24 in the office Exam Data for Last 24 hours Vital signs and Labs for Last 24 Hours: Temp Pulse Resp BP Pulse Ox O2 Del Method 98.2 F 116 H 18 124/81 100 Room Air 08/06/24 09:04 08/06/24 09:04 08/06/24 09:04 08/06/24 09:04 08/06/24 09:04 08/06/24 09:04 Laboratory Results - last 24 hr 08/06/24 06:20: WBC 16.6 H, RBC 5.03, Hgb 12.9, Hct 38.6, MCV 76.7 L, MCH 25.6 L , MCHC 33.4, RDW 19.6 H, Plt Count 317, MPV 7.5, Neut % (Auto) 78.8, Lymph % (Auto) 16.9, [place] % (Auto) 2.9, Eos % (Auto) 1.0, Baso % (Auto) 0.4, Neut # (Auto) 13.1 H, Lymph # (Auto) 2.8, [place] # (Auto) 0.5, Eos # (Auto) 0.2, Baso # (Auto) 0.1, Total Counted 100, Neutrophils % (Manual) 72, Lymphocytes % (Manual) 25, Monocytes % (Manual) 2, Eosinophils % (Manual) 1, Platelet Estimate Normal, Hypochromasia 1+, Sodium 138, Potassium 3.6, Chloride 106, Carbon Dioxide 19 L, Anion Gap 16.6 H, BUN 7, Creatinine 0.40 L, Estimated Creat Clear 267, Estimated GFR 189, Est GFR ( Amer) 228, Glucose 100, Calcium 9.2, Total Bilirubin 0.4, AST 26, ALT 27, Alkaline Phosphatase 63, Total Protein 7.3, Albumin 4.1, Globulin 3.2, Albumin/Globulin Ratio 1.3, HCG, Quant [id number] H 08/06/24 06:45: WBC 15.5 H, RBC 4.75, Hgb 12.6, Hct 38.0, MCV 80.0 L, MCH 26.5 L , MCHC 33.1, RDW 19.8 H, Plt Count 349, MPV 8.8, Neut % (Auto) 85.6 H, Lymph % (Auto) 11.2, [place] % (Auto) 2.6, Eos % (Auto) 0.4, Baso % (Auto) 0.3, Neut # (Auto) 13.2 H, Lymph # (Auto) 1.7, [place] # (Auto) 0.4, Eos # (Auto) 0.1, Baso # (Auto) 0.0, Blood Type A Positive, Antibody Screen Negative, Crossmatch ([facility]) See Detail 08/06/24 07:30: PT 10.1, INR 0.89 L, APTT 29.3, Fibrinogen 420 H, Sodium 137, Potassium 3.7, Chloride 107, Carbon Dioxide 20 L, Anion Gap 13.7, BUN 7, Creatinine 0.50 L D, Estimated Creat Clear 214, Estimated GFR 146, Est GFR ( Amer) 177 D, Glucose 92, Uric Acid 4.1, Calcium 9.2, AST 32, ALT 26 I & O for Last 24 hours: Intake & Output 08/03/24 08/04/24 08/05/24 08/06/24 23:59 23:59 23:59 23:59 Weight 180 lb 0.013 oz Constitutional Constitutional: no acute distress *Routine HEENT Exam Head: Present normocephalic Eye: Present EOMI and PERRL ENT: Present mucous membranes moist *Routine Neck Exam Neck: Present supple; Absent lymphadenopathy *Routine Respiratory Exam Respiratory: Present CTA bilaterally *Routine Cardiovascular Exam Cardiovascular: Present RRR *Routine Abdominal Exam Abdominal: Present soft and normoactive bowel sounds; Absent tenderness Comments: fundus below the umbilicus. bleeding stable *Routine Extremities Exam Extremities: Absent cyanosis, clubbing or edema *Routine Skin Exam Skin: Present warm; Absent rash *Routine Neurological Exam Neurological: Present alert and oriented X3 Results Data Completed and Pending Labs on day of discharge: Labs from last 24 hours 08/06/24 08/06/24 08/06/24 07:30 06:45 06:20 WBC 15.5 H 16.6 H RBC 4.75 5.03 Hgb 12.6 12.9 Hct 38.0 38.6 MCV 80.0 L 76.7 L MCH 26.5 L 25.6 L MCHC 33.1 33.4 RDW 19.8 H 19.6 H Plt Count 349 317 MPV 8.8 7.5 Neut % (Auto) 85.6 H 78.8 Lymph % (Auto) 11.2 16.9 [place] % (Auto) 2.6 2.9 Eos % (Auto) 0.4 1.0 Baso % (Auto) 0.3 0.4 Neut # (Auto) 13.2 H 13.1 H Lymph # (Auto) 1.7 2.8 [place] # (Auto) 0.4 0.5 Eos # (Auto) 0.1 0.2 Baso # (Auto) 0.0 0.1 Total Counted 100 Neutrophils % (Manual) 72 Lymphocytes % (Manual) 25 Monocytes % (Manual) 2 Eosinophils % (Manual) 1 Platelet Estimate Normal Hypochromasia 1+ PT 10.1 INR 0.89 L APTT 29.3 Fibrinogen 420 H Sodium 137 138 Potassium 3.7 3.6 Chloride 107 106 Carbon Dioxide 20 L 19 L Anion Gap 13.7 16.6 H BUN 7 7 Creatinine 0.50 L D 0.40 L Estimated Creat Clear 214 267 Estimated GFR 146 189 Est GFR ( Amer) 177 D 228 Glucose 92 100 Uric Acid 4.1 Calcium 9.2 9.2 Total Bilirubin 0.4 AST 32 26 ALT 26 27 Alkaline Phosphatase 63 Total Protein 7.3 Albumin 4.1 Globulin 3.2 Albumin/Globulin Ratio 1.3 HCG, Quant [id number] H Blood Type A Positive Antibody Screen Negative Crossmatch ([facility]) See Detail DS: Diagnosis Discharge Diagnosis (1) Incomplete : Status: Acute Code(s): O03.4 - Incomplete spontaneous without complication Meds Home Medications and Allergies Home Medications ?Medication ?Instructions ?Recorded ?Confirmed ?Type docosahexaenoic acid 200 mg 200 mg PO DAILY 06/10/24 08/06/24 History capsule ( DHA) ferrous sulfate 325 mg (65 mg 325 mg PO DAILY #30 tabs 06/10/24 08/06/24 Rx iron) tablet acetaminophen 500 mg tablet 500 mg PO Q6H PRN fever or pain 08/06/24 Rx #30 tabs ibuprofen 800 mg tablet 800 mg PO Q8H PRN pain #60 tabs 08/06/24 Rx New Prescriptions to Start Prescriptions: acetaminophen Bryce,Venecia ibuprofen Venecia Wu Allergies Allergy/AdvReac Type Severity Reaction Status Date / Time calamine (From Calamine Plus AdvReac Severe Skin Verified 06/10/24 08:41 (pramox-calamin)) Swelling pramoxine (From Calamine AdvReac Severe Skin Verified 06/10/24 08:41 Plus (pramox-calamin)) Swelling Discharge Plan Disposition Patient Disposition: Home, Self-Care Follow up Plan Prescriptions/Medication Reconciliation: New ibuprofen 800 mg tablet 800 mg PO Q8H PRN (Reason: pain) Qty: 60 2RF acetaminophen 500 mg tablet 500 mg PO Q6H PRN (Reason: fever or pain) Qty: 30 3RF Continued DHA 200 mg capsule 200 mg PO DAILY ferrous sulfate 325 mg (65 mg iron) tablet 325 mg PO DAILY Qty: 30 6RF Problem Reconciliation Problems Reviewed?: Yes Patient Discharge Instructions ACTIVITY: Continue current activity DIET: regular diet Patient Instructions: Dealing With Miscarriage, Depression, Hemorrhage, DI for Miscarriage Print Language: Thai Providers Primary Care Provider: Yvonne Frank Admit Provider: Douglas Dominguez Attending Provider: Douglas Dominguez
== END 2024-08-06 18:08 | disposition home or self-care (01) ==
LOC: ER 05:40 → OB 06:19
PROVIDERS: Obstetrics & Gynecology; Admitting Provider Nurse Practitioner Obstetrics & Gynecology; Emergency Provider Emergency Medicine; PCP Physician Assistant; Visit Provider Nurse Practitioner Obstetrics & Gynecology
DX: O03.4 Incomplete spontaneous abortion without complication (principal)
CPT/HCPCS: 59812; 36415; 76805; 80048; 80053; 84450; 84460; 84550; 84702; 85007; 85025; 85027; 85384; 85610; 85730; 86850; 99285; G0378

== ENCOUNTER 2024-10-29 16:20 | Emergency (ER) | payer OTHER, SELFPAY ==
[2024-10-29 16:27] VITALS: BP 139/90; PULSE 111; RESP 18; TEMP 37; O2SAT 100; BMI 34.2
--- NOTE | 2024-10-29 16:33 | ED_ITS ---
<Statement entered by Daisy Amor DO - 10/29/24 23:37> I was consulted by the NICHOLAS, and we discussed the complexity of the problems being addressed. I approved the treatment and management plan for this patient's care in the emergency department, thus performing a substantive portion of the medical decision making. Daisy Amor DO I independently interpreted EKG at 1719 and noted normal sinus rhythm with sinus arrhythmia with a ventricular rate of 98 bpm. Normal intervals including QTc of [address] changes concerning for ischemia. Discharge Plan Disposition Patient Disposition: Home, Self-Care Condition: Good Prescriptions Prescriptions: No Action hydroxyzine HCl 25 mg tablet 25 mg PO HS Qty: 30 1RF DHA 200 mg capsule 200 mg PO DAILY ferrous sulfate 325 mg (65 mg iron) tablet 325 mg PO DAILY Qty: 30 6RF ibuprofen 800 mg tablet 800 mg PO Q8H PRN (Reason: pain) Qty: 60 2RF acetaminophen 500 mg tablet 500 mg PO Q6H PRN (Reason: fever or pain) Qty: 30 3RF Referrals Follow up/Referrals: Yvonne Frank PA [Primary Care Provider] - See instructions Kenyon Haider II, MD [Staff Physician] - See instructions Maeve López APRN [Nurse Practitioner] - See instructions Javier Morgan MD [Staff Physician] - See instructions Activity Restrictions/Add. Instructions Additional Instructions/Restrictions: Please follow-up with your with your PCP next week. I have referred you to gastroenterology behavioral health and cardiology for further workup for your chest pain symptoms as well as for your anxiety. I do not see a good antianxiety medication regimen and I think you would benefit from medication review. If you have any new or worsening signs or symptoms return. Clinical Impressions Clinical Impression: Chest pain Qualifiers: Chest pain type: unspecified Qualified Code(s): R07.9 - Chest pain, unspecified Instructions Patient Instructions: DI for Acute Abdominal Pain Print Language Print Language: [place] Konger Discharge ED Provider: Daisy Amor General Adult HPI General Chief complaint: Abdominal Pain Stated complaint: heat in chest, anxiety Time Seen by Provider: 10/29/24 16:32 Mode of Arrival: Ambulatory Source of Information: Patient Limitations: No Limitations Description of Symptoms (Recalled from ER Triage Doc. by RN): Pt presents with c/o heartburn that started yesterday evening. Pt states she took some tums and an antianxiety medication that she is prescribed (pt unable to recall medication), but still feels like has the refulx but has also had abd pain for several weeks. History of Present Illness HPI narrative: Patient presents for evaluation of chest pain/heartburn. Patient reports approximately 2-minute of epigastric abdominal pain that started yesterday after she ate. It has not occurred since however patient is concerned that she has an ulcer and/or chest pain of a cardiac nature and hence presented to the emergency department for evaluation. She denies any shortness of breath fever chills hemoptysis hematochezia melena nausea vomiting diarrhea inability to tolerate oral intake. Patient has 8 and drank normally today and has had a normal bowel movement today patient states that she feels heat in her chest today. Related Data Home Medications ?Medication ?Instructions ?Recorded ?Confirmed docosahexaenoic acid 200 mg 200 mg PO DAILY 06/10/24 08/12/24 capsule ( DHA) Previous Rx's ?Medication ?Instructions ?Recorded ferrous sulfate 325 mg (65 mg 325 mg PO DAILY #30 tabs 06/10/24 iron) tablet acetaminophen 500 mg tablet 500 mg PO Q6H PRN fever or pain 08/06/24 #30 tabs ibuprofen 800 mg tablet 800 mg PO Q8H PRN pain #60 tabs 08/06/24 hydroxyzine HCl 25 mg tablet 25 mg PO HS #30 tabs 08/12/24 Allergies Allergy/AdvReac Type Severity Reaction Status Date / Time calamine (From Calamine Plus AdvReac Severe Skin Verified 08/12/24 09:52 (pramox-calamin)) Swelling pramoxine (From Calamine AdvReac Severe Skin Verified 08/12/24 09:52 Plus (pramox-calamin)) Swelling PFSH PFSH Disclaimer: The information contained in this section may have been updated after the patient was seen, as this information can be updated by other users. Medical History Vitamin D deficiency (~05/21/18) Surgical History Hx of eye surgery Family History Other Cancer Social History Smoking Status: Never smoker alcohol intake: never substance use type: denies use current occupational status: employed Travel in the last 8 weeks: None household members: family housing: house caffeine: No Have you lived/traveled outside US in past 30 days?: No Contact w/someone who lives/traveled outside US past 30 days?: No Exposure to someone with infectious disease in past 14 days?: No Do you have a fever (greater than 100.4 F or 38 C)?: No Have you tested positive for COVID-19: No Exposed to someone with COVID-19 in past 14 days?: No Do you have a sore throat?: No Do you have a cough?: No Do you have any weakness?: No Do you have any diarrhea?: No Are you experiencing any unusual bleeding?: No Do you have any muscle aches/pain?: No Do you have any abdominal pain?: No Are you experiencing loss of taste or smell?: No Other Medical History Have you received the Flu Vaccine for this season: No Have you received the Pneumonia Vaccine: No ROS Obtained: Yes Systems reviewed as appropriate & no additional complaints except as documented Physical Exam General General appearance: alert and in no apparent distress Respiratory Respiratory exam: Present normal lung sounds bilaterally Cardiovascular Cardiovascular exam: Present tachycardia Neurological Exam Neurological exam: Present alert and oriented X3 Medical Decision Making Medical Records Medical records reviewed: Yes I reviewed the patient's medical records. Screening: Per USPSTF and CDC recommendations, given the prevalence of disease in our region, it is our hospital?s policy to screen for HIV and viral Hepatitis for all patients aged 18 and over and those with ongoing risk factors. Bao Inquiry Pt receiving controlled substance: No Vital Signs: 10/29/24 16:27 10/29/24 19:14 Temperature 98.6 F 98.2 F Temperature Source Oral Pulse Rate 81 Pulse Rate [Right] 111 H Respiratory Rate 18 18 Blood Pressure 133/74 Blood Pressure [Right Arm] 139/90 Blood Pressure Mean [Right Arm] 106 Blood Pressure Source [Right Arm] Automatic Cuff Blood Pressure Position [Right Arm] Sitting 02 Sat by Pulse Oximetry 100 Oxygen Delivery Method Room Air Lab Data Lab results reviewed: Yes I reviewed the patient's lab results. Lab Results 10/29/24 17:30: WBC 11.7 H, RBC 5.28, Hgb 13.4, Hct 42.5, MCV 80.5 L, MCH 25.4 L , MCHC 31.5 L, RDW 12.9, Plt Count 356, MPV 9.5, Neut % (Auto) 70.5, Lymph % (Auto) 24.4, [place] % (Auto) 4.1, Eos % (Auto) 0.5, Baso % (Auto) 0.2, Neut # (Auto) 8.2 H, Lymph # (Auto) 2.8, [place] # (Auto) 0.5, Eos # (Auto) 0.1, Baso # (Auto) 0.0, Sodium 138, Potassium 4.5, Chloride 105, Carbon Dioxide 27, Anion Gap 10.5, BUN 18 H, Creatinine 0.60, Estimated Creat Clear 173, Estimated GFR 118, Est GFR ( Amer) 143, Glucose 101 H, Calcium 9.5, Total Bilirubin 0.2, AST 32, ALT 24, Alkaline Phosphatase 55, Troponin I < 0.01, Total Protein 8.3 H, Albumin 5.1 H, Globulin 3.2, Albumin/Globulin Ratio 1.6, Lipase 62, TSH 1.80, Free T4 Index 3.0 L, Thyroxine (T4) 9.8, T3 Uptake 31, Serum HCG, Qual Negative 10/29/24 18:12: Urine Color Yellow, Urine Appearance Clear, Urine pH 6.0, Ur Specific [place] >= 1.030, Urine Protein Negative, Urine Glucose (UA) Negative, Urine Ketones Negative, Urine Blood 1+ A, Urine Nitrate Negative, Urine Bilirubin Negative, Urine Urobilinogen 0.2, Ur Leukocyte Esterase Negative, Urine RBC 3-5, Urine WBC 5-10, Ur Squamous Epith Cells 10-20, Calcium Oxalate Crystal Trace, Urine Bacteria 3+, Urine Mucus 4+ 10/29/24 17:30 10/29/24 17:30 Orders (Tests/Meds): ED MEDICATIONS Discontinued Medications Generic Name Dose Route Start Last Admin Trade Name Freq PRN Reason Stop Dose Admin Ketorolac Tromethamine 15 mg 10/29/24 17:06 10/29/24 17:39 Ketorolac 30mg/Ml Vial IV 10/29/24 17:07 Not Given ONCE ONE Lorazepam 1 mg 10/29/24 17:06 10/29/24 17:39 Lorazepam 2mg/Ml Vial IV 10/29/24 17:07 Not Given ONCE ONE Ondansetron HCl 4 mg 10/29/24 17:06 10/29/24 17:39 Ondansetron 4mg/2ml Vial IV 10/29/24 17:07 Not Given ONCE ONE Sodium Chloride 10 ml 10/29/24 17:06 Sodium Chloride 0.9% 10ml Vial IV 11/28/24 17:05 NEEDED PRN to Dilute Lorazepam inj ORDERS Category Date Time Status Chest XR 2 view (NOT portable) [XR chest 2V] Stat Exams 10/29/24 17:07 Completed CBC w/Auto Diff [Complete Blood Count Auto Diff] Stat Lab 10/29/24 17:30 Completed CMP [Comprehensive Metabolic Panel] Stat Lab 10/29/24 17:30 Completed Lipase Stat Lab 10/29/24 17:30 Completed Serum [HCG Qualitative, Serum] Stat Lab 10/29/24 17:30 Completed Thyroid Panel Stat Lab 10/29/24 17:30 Completed Trop I [Troponin I] Stat Lab 10/29/24 17:30 Completed UA [Urinalysis and Microscopic] Stat Lab 10/29/24 18:12 Completed Urine Culture Stat Micro 10/29/24 18:12 Received HEART Score History (anamnesis): Slightly suspicious ECG: Normal Age: <45 years Risk factors: 1-2 risk factors Troponin: </= normal limit HEART Score: 1 Medical Decision Narrative: In summary patient is a 29-year-old female who presents to the emergency department for evaluation of epigastric pain yesterday. Patient is initially normotensive 139/90 with a heart rate of 111 sinus tachycardia the bedside monitor breathing 18 times a minute satting 100% room air upon arrival, afebrile at 98.6. Physical exam is unremarkable nonfocal including normal breath sounds no epigastric tenderness to palpation no abdominal tenderness rebound or guarding or rigidity normal bowel sounds. There is no chest wall tenderness.. Differential diagnosis includes esophagitis versus ACS versus gastritis etc. Initial workup will be conducted with hematologic labs plain film chest x-ray. Initial interventions are offered including Toradol Tylenol Ativan for her anxiety and a GI cocktail however patient declined all.. Upon repeat evaluation patient still reported heat in her chest but is tolerant of oral intake. Given this I had interactive discussion with the patient regarding her symptoms her LE and the results and via shared decision making patient elected to not try the interventions I recommended however was receptive to referral to gastroenterology for further evaluation behavioral health for evaluation of better anxiety control and cardiology for restratification and further workup and care. Patient thus is appropriate for discharge at this time and strict return precautions. Critical Care Critical Care Time Critical Care Time: No
--- NOTE | 2024-10-29 17:07 | XR_ITS ---
PROCEDURE INFORMATION: Exam: XR Chest Exam date and time: 10/29/2024 5:21 PM Age: 29 years old Clinical indication: Pain; Left-sided; Additional info: Chest pain TECHNIQUE: Imaging protocol: Radiologic exam of the chest. Views: 2 views. COMPARISON: No relevant prior studies available. FINDINGS: Lungs: No consolidation. Pleural spaces: No significant pleural effusion. No pneumothorax. Heart/Mediastinum: No cardiomegaly. Bones/joints: No displaced fracture. Soft tissues: Unremarkable. IMPRESSION: No definite acute cardiopulmonary disease.
--- NOTE | 2024-10-29 17:16 | ECG_ITS ---
APPROVED REPORT Exam: Resting ECG HR:98 bpm ECG Measurements Heart Rate 98 AXES MN 157 P 30 QRSd 102 QRS 8 QT 359 T 21 QTc 414 Conclusion SINUS RHYTHM WITH SINUS ARRHYTHMIA POSSIBLE ANTERIOR MYOCARDIAL INFARCTION , PROBABLY OLD [30 ms Q WAVE IN V3/V4, OR R < 0.2 mV IN V4] BORDERLINE ECG UNCONFIRMED REPORT Electronically signed by : JAYSON KAUFMAN, 10/29/2024 23:55:35
[2024-10-29 17:36] LABS: Basophils % 0.2 % (0.1-2.0); Eosinophils # 0.1 K/mm3 (0.0-0.4); Eosinophils % 0.5 % (0.1-12.0); Hematocrit 42.5 % (37.0-47.0); Hemoglobin 13.4 g/dL (12.2-16.2); Lymphocytes # 2.8 K/mm3 (0.7-4.5); Lymphocytes % 24.4 % (10-50); Mean Corpuscular HGB Conc 31.5 g/dL (31.8-35.4); Mean Corpuscular Hemoglobin 25.4 pg (27.0-31.2); Mean Corpuscular Volume 80.5 fl (81-99); Mean Platelet Volume 9.5 fl (7.4-10.4); Monocytes # 0.5 K/mm3 (0.1-1.0); Monocytes % 4.1 % (1.7-9.3); Neutrophils # 8.2 K/mm3 (1.8-7.8); Neutrophils % 70.5 % (37.0-80.0); Platelet Count 356 K/mm3 (142-424); Red Blood Count 5.28 M/mm3 (4.20-5.40); Red Cell Distribution Width 12.9 % (11.5-17.5); White Blood Count 11.7 K/mm3 (4.8-10.8)
--- NOTE | 2024-10-29 17:40 | PC.NURSE ---
TRN went to administer medications scheduled for pt. pt refused all medications. pt states that she is not nausea, does not have pain, and prefers to control her anxiety on her own.
[2024-10-29 17:59] LABS: Alanine Aminotransferase 24 U/L (12-78); Albumin Level 5.1 g/dl (3.5-5.0); Albumin/Globulin Ratio 1.6 (1.1-1.8); Alkaline Phosphatase 55 U/L (38-126); Anion Gap 10.5 mEq/L (5-15); Aspartate Amino Transferase 32 U/L (14-36); Bilirubin,Total 0.2 mg/dl (0.2-1.3); Blood Urea Nitrogen 18 mg/dl (7-17); Calcium 9.5 mg/dl (8.4-10.2); Carbon Dioxide 27 mmol/L (22.0-30.0); Chloride 105 mmol/L (98-107); Creatinine Clearance Estimated 173 mL/min (50-200); Estimated Glomerular Filt Rate 118 ml/min (>60); GFR (African American) 143 ML/MIN (>60); Globulin 3.2 g/dL (1.3-3.2); Glucose 101 mg/dl (74-100); Lipase 62 U/L (23-300); Potassium 4.5 mmoL/L (3.5-5.1); Sodium 138 mmol/L (136-145); Total Protein,Serum 8.3 g/dl (6.3-8.2)
[2024-10-29 18:11] LABS: HCG Qualitative, Serum Negative (Negative)
--- NOTE | 2024-10-29 18:13 | PC.NURSE ---
pt asking about POC and how much longer she will be here. pt ambulatroy to bathroom to provide urine sample.
--- NOTE | 2024-10-29 18:17 | PC.NURSE ---
UA sent to lab
[2024-10-29 18:20] LABS: Microscopic, Urine URINE MICROSCOPIC (MICROSCOPIC)
[2024-10-29 18:25] LABS: Appearance,Urine CLEAR (Clear); Bilirubin,Urine Negative (Negative); Blood, Urine 1+ (Negative); Color,Urine YELLOW (Yellow); Glucose,Urine (UA) Negative (Negative); Ketones,Urine Negative (Negative); Leukocyte Esterase,Urine Negative (Negative); Nitrate,Urine Negative (Negative); Protein,Urine Negative (Negative); Specific Gravity, Urine >= 1.030 (1.005-1.030); Urobilinogen,Urine 0.2 EU/dl (0.2)
[2024-10-29 18:30] LABS: Triiodothryronine (T3) Uptake 31 % (23.5-40.5)
[2024-10-29 18:31] LABS: T4 (Thyroxine) 9.8 ug/dl (5.53-11.0)
[2024-10-29 18:32] LABS: Troponin I < 0.01 ng/ml (0.00-0.034)
[2024-10-29 19:14] VITALS: BP 133/74; PULSE 81; RESP 18; TEMP 36.8; O2SAT 99
[2024-10-29 19:23] LABS: Bacteria,Urine 3+ /lpf
[2024-10-29 19:24] LABS: Calcium Oxalate Crystals,Urine Trace /lpf; Mucus,Urine 4+ /lpf
== END 2024-10-29 19:15 | disposition home or self-care (01) ==
PROVIDERS: Physician Assistant; Emergency Provider Emergency Medicine; PCP Physician Assistant
DX: R07.9 Chest pain, unspecified (principal); R12 Heartburn
CPT/HCPCS: 71046; 80053; 81001; 83690; 84436; 84443; 84479; 84484; 84703; 85025; 87086; 93005; 99284; J1885; J2060; J2405

== ENCOUNTER 2024-11-16 07:05 | Outpatient (CLI) | payer OTHER, SELFPAY ==
--- NOTE | 2024-11-16 07:10 | US_ITS ---
FINAL REPORT CLINICAL HISTORY: CHEST PAIN COMPARISON: None FINDINGS: Sonographic images of the right upper quadrant were obtained. The pancreas is partially obscured.The liver has an unremarkable appearance. There is an echogenic focus in the gallbladder which does not have posterior acoustical shadowing, most consistent with a thickened sludge ball. There is no evidence of biliary ductal dilatation.The common duct measures 2 mm. Limited images of the right kidney are unremarkable. IMPRESSION: Echogenic focus in the gallbladder which does not produce shadowing, most consistent with a sludge ball. No biliary ductal dilatation is identified. Reviewed, Interpreted and Dictated by Marco Moreno MD Transcribed by Scarlet Suarez Authenticated and . [facility]
== END 2024-11-16 23:59 | disposition home or self-care (01) ==
LOC: RAD 07:06
PROVIDERS: PCP Physician Assistant; Visit Provider Physician Assistant
DX: R07.9 Chest pain, unspecified (principal)
CPT/HCPCS: 76705

== ENCOUNTER 2024-11-20 10:34 | Outpatient (CLI) | payer OTHER, SELFPAY ==
[2024-11-20 11:12] LABS: Basophils % 0.2 % (0.1-2.0); Eosinophils # 0.1 K/mm3 (0.0-0.4); Eosinophils % 0.6 % (0.1-12.0); Hematocrit 42.5 % (37.0-47.0); Hemoglobin 13.6 g/dL (12.2-16.2); Lymphocytes # 2.8 K/mm3 (0.7-4.5); Lymphocytes % 25.3 % (10-50); Mean Corpuscular Hemoglobin 25.7 pg (27.0-31.2); Mean Corpuscular Volume 80.2 fl (81-99); Mean Platelet Volume 9.4 fl (7.4-10.4); Monocytes # 0.5 K/mm3 (0.1-1.0); Monocytes % 4.7 % (1.7-9.3); Neutrophils # 7.6 K/mm3 (1.8-7.8); Neutrophils % 68.8 % (37.0-80.0); Platelet Count 343 K/mm3 (142-424); Red Cell Distribution Width 12.8 % (11.5-17.5); White Blood Count 11.1 K/mm3 (4.8-10.8)
[2024-11-20 11:21] LABS: Chloride 105 mmol/L (98-107)
[2024-11-20 11:22] LABS: Potassium 4.2 mmoL/L (3.5-5.1); Sodium 139 mmol/L (136-145)
[2024-11-20 11:25] LABS: Alanine Aminotransferase 22 U/L (12-78); Albumin/Globulin Ratio 1.8 (1.1-1.8); Alkaline Phosphatase 58 U/L (38-126); Anion Gap 11.2 mEq/L (5-15); Aspartate Amino Transferase 24 U/L (14-36); Bilirubin,Total 0.2 mg/dl (0.2-1.3); Blood Urea Nitrogen 14 mg/dl (7-17); Calcium 9.5 mg/dl (8.4-10.2); Carbon Dioxide 27 mmol/L (22.0-30.0); Estimated Glomerular Filt Rate 118 ml/min (>60); GFR (African American) 143 ML/MIN (>60); Globulin 2.8 g/dL (1.3-3.2); Glucose 96 mg/dl (74-100); Total Protein,Serum 7.8 g/dl (6.3-8.2)
[2024-11-20 11:45] LABS: HCG,Quantitative < 2 mIU/ml (0-5.42)
== END 2024-11-20 23:59 | disposition home or self-care (01) ==
LOC: PREOP 10:35
PROVIDERS: PCP Physician Assistant; Visit Provider Obstetrics & Gynecology
DX: N84.1 Polyp of cervix uteri (principal)
CPT/HCPCS: 80053; 84702; 85025

== ENCOUNTER 2024-11-22 12:16 | Emergency (ER) | payer OTHER, SELFPAY ==
--- NOTE | 2024-11-22 12:48 | ED_ITS ---
Discharge Plan Disposition Patient Disposition: Admitted Condition: Fair Prescriptions Prescriptions: New dicyclomine 20 mg tablet 20 mg PO BID Qty: 10 0RF No Action ferrous sulfate 325 mg (65 mg iron) tablet 325 mg PO DAILY PRN (Reason: anemia) ibuprofen 800 mg tablet 800 mg PO Q8H PRN (Reason: pain) Qty: 60 2RF Referrals Follow up/Referrals: Yvonne Frank PA [Primary Care Provider] - See instructions Activity Restrictions/Add. Instructions Additional Instructions/Restrictions: Today you were evaluated in the emergency department for abdominal pain, you have been given a prescription for Bentyl, please take this as directed. Please increase fluid intake. Due to the sludge in your gallbladder, you may need to follow-up with general surgery. Return to the ED for worsening of condition. Clinical Impressions Clinical Impression: Abdominal pain Qualifiers: Abdominal location: generalized Qualified Code(s): R10.84 - Generalized abdominal pain Instructions Patient Instructions: DI for Acute Abdominal Pain Print Language Print Language: [place] Island[place] Discharge ED Provider: Too Otero General Adult HPI <Nancy Ochoa APRN - Last Filed: 11/22/24 15:28> General Chief complaint: Abdominal Pain Stated complaint: Lower abd. pain Time Seen by Provider: 11/22/24 12:40 History of Present Illness HPI narrative: Patient is a 29-year-old female no significant PMHx who presents to the ED with 3 days of intermittent abdominal cramping in the lower aspect associated with diarrhea. Related Data Home Medications ?Medication ?Instructions ?Recorded ?Confirmed ferrous sulfate 325 mg (65 mg 325 mg PO DAILY PRN anemia 11/20/24 11/20/24 iron) tablet Previous Rx's ?Medication ?Instructions ?Recorded ibuprofen 800 mg tablet 800 mg PO Q8H PRN pain #60 tabs 08/06/24 dicyclomine 20 mg tablet 20 mg PO BID #10 tabs 11/22/24 Allergies Allergy/AdvReac Type Severity Reaction Status Date / Time calamine (From Calamine Plus AdvReac Severe Skin Verified 11/22/24 13:23 (pramox-calamin)) Swelling pramoxine (From Calamine AdvReac Severe Skin Verified 11/22/24 13:23 Plus (pramox-calamin)) Swelling PFSH <Nancy Ochoa APRN - Last Filed: 11/22/24 15:28> PFSH Disclaimer: The information contained in this section may have been updated after the patient was seen, as this information can be updated by other users. Medical History (Updated 11/22/24 @ 15:19 by Nancy Ochoa APRN) Vitamin D deficiency (~05/21/18) Surgical History (Updated 11/20/24 @ 10:45 by Louie Flores RN) History of wisdom tooth extraction Hx of eye surgery Family History Other Cancer Social History (Updated 11/20/24 @ 10:46 by Louie Flores RN) Smoking Status: Never smoker alcohol intake: never substance use type: denies use current occupational status: unemployed Travel in the last 8 weeks: None household members: family housing: house caffeine: No Have you lived/traveled outside US in past 30 days?: No Contact w/someone who lives/traveled outside US past 30 days?: No Exposure to someone with infectious disease in past 14 days?: No Do you have a fever (greater than 100.4 F or 38 C)?: No Have you tested positive for COVID-19: No Exposed to someone with COVID-19 in past 14 days?: No Do you have a sore throat?: No Do you have a cough?: No Do you have any weakness?: No Do you have any diarrhea?: No Are you experiencing any unusual bleeding?: No Do you have any muscle aches/pain?: No Do you have any abdominal pain?: Yes Are you experiencing loss of taste or smell?: No Other Medical History Have you received the Flu Vaccine for this season: No Have you received the Pneumonia Vaccine: No <Nancy Ochoa APRN - Last Filed: 11/22/24 15:28> ROS Obtained: Yes Systems reviewed as appropriate & no additional complaints except as documented Physical Exam <Nancy Ochoa APRN - Last Filed: 11/22/24 15:28> General General appearance: alert and in no apparent distress Head Head exam: atraumatic and normocephalic Eye Eye exam: Present normal appearance and PERRL ENT ENT exam: Present normal exam Neck Neck exam: Present normal inspection Chest Chest inspection: Present normal inspection and symmetric chest wall rise; Absent tenderness Respiratory Respiratory exam: Present normal lung sounds bilaterally Cardiovascular Cardiovascular exam: Present regular rate Abdominal Exam Abdominal exam: Present soft and normal bowel sounds; Absent tenderness Extremities Exam Extremities exam: Present normal inspection and full ROM Back Exam Back exam: Present normal inspection and full ROM Neurological Exam Neurological exam: Present alert and oriented X3 Psychiatric Psychiatric exam: Present normal affect and normal mood Skin Skin exam: Present warm and dry Medical Decision Making <Nancy Ochoa APRN - Last Filed: 11/22/24 15:28> Medical Records Screening: Per USPSTF and CDC recommendations, given the prevalence of disease in our region, it is our hospital?s policy to screen for HIV and viral Hepatitis for all patients aged 18 and over and those with ongoing risk factors. Bao Inquiry Pt receiving controlled substance: No Bao was queried for this patient: No Vital Signs: 11/22/24 12:52 11/22/24 13:00 11/22/24 13:30 Temperature 98 F Temperature Source Oral Pulse Rate 98 H 81 Pulse Rate [Right Radial] 100 H Respiratory Rate 14 Blood Pressure 124/30 L 116/75 Blood Pressure [Right Radial Artery] 149/92 H Blood Pressure Mean [Right Radial Artery] 111 Blood Pressure Source [Right Radial Artery] Automatic Cuff 02 Sat by Pulse Oximetry 100 99 99 Oxygen Delivery Method Room Air Room Air 11/22/24 14:00 11/22/24 14:30 11/22/24 15:19 Temperature 98.2 F Temperature Source Pulse Rate 81 80 87 Pulse Rate [Right Radial] Respiratory Rate 18 Blood Pressure 125/83 116/79 125/74 Blood Pressure [Right Radial Artery] Blood Pressure Mean [Right Radial Artery] Blood Pressure Source [Right Radial Artery] 02 Sat by Pulse Oximetry 100 100 Oxygen Delivery Method Room Air 11/22/24 15:19 Temperature 98.2 F Temperature Source Pulse Rate 87 Pulse Rate [Right Radial] Respiratory Rate 18 Blood Pressure 106/76 L Blood Pressure [Right Radial Artery] Blood Pressure Mean [Right Radial Artery] Blood Pressure Source [Right Radial Artery] 02 Sat by Pulse Oximetry Oxygen Delivery Method Lab Data Lab Results 11/22/24 12:49: WBC 12.7 H, RBC 5.21, Hgb 12.9, Hct 41.6, MCV 79.8 L, MCH 24.8 L , MCHC 31.0 L, RDW 12.7, Plt Count 324, MPV 9.6, Neut % (Auto) 74.4, Lymph % (Auto) 19.6, [place] % (Auto) 5.0, Eos % (Auto) 0.4, Baso % (Auto) 0.2, Neut # (Auto) 9.5 H, Lymph # (Auto) 2.5, [place] # (Auto) 0.6, Eos # (Auto) 0.1, Baso # (Auto) 0.0, Sodium 141, Potassium 4.1, Chloride 107, Carbon Dioxide 26, Anion Gap 12.1, BUN 17, Creatinine 0.50 L, Estimated Creat Clear 214, Estimated GFR 146, Est GFR ( Amer) 177 D, Glucose 88, Calcium 9.1, Total Bilirubin 0.2, AST 25, ALT 21, Alkaline Phosphatase 59, Total Protein 7.8, Albumin 4.9, Globulin 2.9, Albumin/Globulin Ratio 1.7, Lipase 68 11/22/24 13:09: Urine Color Yellow, Urine Appearance Clear, Urine pH 7.5, Ur Specific [place] 1.030, Urine Protein Trace A, Urine Glucose (UA) Negative, Urine Ketones Negative, Urine Blood 1+ A, Urine Nitrate Negative, Urine Bilirubin Negative, Urine Urobilinogen 0.2, Ur Leukocyte Esterase Negative, Urine RBC 5-10, Urine WBC Occasional, Ur Squamous Epith Cells 3-5, Urine Bacteria None, Urine HCG, Qual Negative 11/22/24 12:49 11/22/24 12:49 Orders (Tests/Meds): ED MEDICATIONS Discontinued Medications Generic Name Dose Route Start Last Admin Trade Name Freq PRN Reason Stop Dose Admin Dicyclomine HCl 10 mg 11/22/24 12:43 11/22/24 12:59 Dicyclomine 10mg Capsule PO 11/22/24 12:44 10 mg ONCE ONE Administration ORDERS Category Date Time Status CBC w/Auto Diff [Complete Blood Count Auto Diff] Stat Lab 11/22/24 12:49 Completed CMP [Comprehensive Metabolic Panel] Stat Lab 11/22/24 12:49 Completed Lipase Stat Lab 11/22/24 12:49 Completed Urinalysis and Microscopic Stat Lab 11/22/24 13:09 Completed Urine , HCG Qual. Stat Lab 11/22/24 13:09 Completed Medical Decision Narrative: In summary, patient is a 29-year-old female no significant PMHx who presents to the ED with 3 days of intermittent abdominal cramping in the lower aspect associated with diarrhea. Has not taken any medications prior to arrival. No history of abdominal surgeries. Was recently evaluated in the ED few days ago for this, had a gallbladder ultrasound and advised she had sludge in her gallbladder. Patient has not followed up with general surgery. Upon initial exam, patient is alert, oriented and cooperative. Patient is hemodynamically stable. Physical exam unremarkable, abdomen is soft and nontender. Differential diagnosis includes GI illness, viral syndrome, appendicitis, cholecystitis, infected urine, , among others. Initial workup will be conducted with hematologic labs, imaging. Initial inventions include Bentyl. Initial workup reviewed by me. CBC remarkable WBC 12.7, stable H&H. CMP overall unremarkable for any actionable abnormalities. Urinalysis not infected. Lipase 68. I considered additional testing but deferred due to recent imaging from previous visit. Upon repeat evaluation, patient had an acceptable resolution of symptoms. They were ambulatory in the ED. Able to tolerate PO. I had a long discussion with the patient, advise she will need to follow-up with general surgery to be evaluated further for her gallbladder issue. She states she is scheduled for a HIDA scan tomorrow. Discussed importance of follow-up. Return precautions to the ED discussed. <Too Otero MD - Last Filed: 11/22/24 16:44> Vital Signs: 11/22/24 12:52 11/22/24 13:00 11/22/24 13:30 Temperature 98 F Temperature Source Oral Pulse Rate 98 H 81 Pulse Rate [Right Radial] 100 H Respiratory Rate 14 Blood Pressure 124/30 L 116/75 Blood Pressure [Right Radial Artery] 149/92 H Blood Pressure Mean [Right Radial Artery] 111 Blood Pressure Source [Right Radial Artery] Automatic Cuff 02 Sat by Pulse Oximetry 100 99 99 Oxygen Delivery Method Room Air Room Air 11/22/24 14:00 11/22/24 14:30 11/22/24 15:19 Temperature 98.2 F Temperature Source Pulse Rate 81 80 87 Pulse Rate [Right Radial] Respiratory Rate 18 Blood Pressure 125/83 116/79 125/74 Blood Pressure [Right Radial Artery] Blood Pressure Mean [Right Radial Artery] Blood Pressure Source [Right Radial Artery] 02 Sat by Pulse Oximetry 100 100 Oxygen Delivery Method Room Air 11/22/24 15:19 Temperature 98.2 F Temperature Source Pulse Rate 87 Pulse Rate [Right Radial] Respiratory Rate 18 Blood Pressure 106/76 L Blood Pressure [Right Radial Artery] Blood Pressure Mean [Right Radial Artery] Blood Pressure Source [Right Radial Artery] 02 Sat by Pulse Oximetry Oxygen Delivery Method Lab Data Lab Results 11/22/24 12:49: WBC 12.7 H, RBC 5.21, Hgb 12.9, Hct 41.6, MCV 79.8 L, MCH 24.8 L , MCHC 31.0 L, RDW 12.7, Plt Count 324, MPV 9.6, Neut % (Auto) 74.4, Lymph % (Auto) 19.6, [place] % (Auto) 5.0, Eos % (Auto) 0.4, Baso % (Auto) 0.2, Neut # (Auto) 9.5 H, Lymph # (Auto) 2.5, [place] # (Auto) 0.6, Eos # (Auto) 0.1, Baso # (Auto) 0.0, Sodium 141, Potassium 4.1, Chloride 107, Carbon Dioxide 26, Anion Gap 12.1, BUN 17, Creatinine 0.50 L, Estimated Creat Clear 214, Estimated GFR 146, Est GFR ( Amer) 177 D, Glucose 88, Calcium 9.1, Total Bilirubin 0.2, AST 25, ALT 21, Alkaline Phosphatase 59, Total Protein 7.8, Albumin 4.9, Globulin 2.9, Albumin/Globulin Ratio 1.7, Lipase 68 11/22/24 13:09: Urine Color Yellow, Urine Appearance Clear, Urine pH 7.5, Ur Specific [place] 1.030, Urine Protein Trace A, Urine Glucose (UA) Negative, Urine Ketones Negative, Urine Blood 1+ A, Urine Nitrate Negative, Urine Bilirubin Negative, Urine Urobilinogen 0.2, Ur Leukocyte Esterase Negative, Urine RBC 5-10, Urine WBC Occasional, Ur Squamous Epith Cells 3-5, Urine Bacteria None, Urine HCG, Qual Negative Orders (Tests/Meds): ED MEDICATIONS Discontinued Medications Generic Name Dose Route Start Last Admin Trade Name Freq PRN Reason Stop Dose Admin Dicyclomine HCl 10 mg 11/22/24 12:43 11/22/24 12:59 Dicyclomine 10mg Capsule PO 11/22/24 12:44 10 mg ONCE ONE Administration ORDERS Category Date Time Status CBC w/Auto Diff [Complete Blood Count Auto Diff] Stat Lab 11/22/24 12:49 Completed CMP [Comprehensive Metabolic Panel] Stat Lab 11/22/24 12:49 Completed Lipase Stat Lab 11/22/24 12:49 Completed Urinalysis and Microscopic Stat Lab 11/22/24 13:09 Completed Urine , HCG Qual. Stat Lab 11/22/24 13:09 Completed Medical Decision Narrative: In summary, patient is a 29-year-old female no significant PMHx who presents to the ED with 3 days of intermittent abdominal cramping in the lower aspect associated with diarrhea. Has not taken any medications prior to arrival. No history of abdominal surgeries. Was recently evaluated in the ED few days ago for this, had a gallbladder ultrasound and advised she had sludge in her gallbladder. Patient has not followed up with general surgery. Upon initial exam, patient is alert, oriented and cooperative. Patient is hemodynamically stable. Physical exam unremarkable, abdomen is soft and nontender. Differential diagnosis includes GI illness, viral syndrome, appendicitis, cholecystitis, infected urine, , among others. Initial workup will be conducted with hematologic labs, imaging. Initial inventions include Chastity. Initial workup reviewed by me. CBC remarkable WBC 12.7, stable H&H. CMP overall unremarkable for any actionable abnormalities. Urinalysis not infected. Lipase 68. I considered additional testing but deferred due to recent imaging from previous visit. Upon repeat evaluation, patient had an acceptable resolution of symptoms. They were ambulatory in the ED. Able to tolerate PO. I had a long discussion with the patient, advise she will need to follow-up with general surgery to be evaluated further for her gallbladder issue. She states she is scheduled for a HIDA scan tomorrow. Discussed importance of follow-up. Return precautions to the ED discussed. I was consulted by the NICHOLAS, and we discussed the complexity of the problems being addressed. I approve the treatment and management plan for this patient's care in the emergency department, thus performing a substantive portion of the medical decision making. Too Otero MD Critical Care <Nancy Ochoa APRN - Last Filed: 11/22/24 15:28> Critical Care Time Critical Care Time: No
[2024-11-22 12:52] VITALS: BP 149/92; PULSE 100; RESP 14; TEMP 36.6; O2SAT 100; BMI 35.2
[2024-11-22] MEDS: DICYCLOMINE 10MG CAPSULE 10 MG PO (12:59)
[2024-11-22 13:00] VITALS: BP 124/30; PULSE 98; O2SAT 99
[2024-11-22 13:01] LABS: Albumin Level 4.9 g/dl (3.5-5.0); Basophils % 0.2 % (0.1-2.0); Chloride 107 mmol/L (98-107); Eosinophils # 0.1 K/mm3 (0.0-0.4); Eosinophils % 0.4 % (0.1-12.0); Hematocrit 41.6 % (37.0-47.0); Hemoglobin 12.9 g/dL (12.2-16.2); Lymphocytes # 2.5 K/mm3 (0.7-4.5); Lymphocytes % 19.6 % (10-50); Mean Corpuscular Hemoglobin 24.8 pg (27.0-31.2); Mean Corpuscular Volume 79.8 fl (81-99); Mean Platelet Volume 9.6 fl (7.4-10.4); Monocytes # 0.6 K/mm3 (0.1-1.0); Neutrophils # 9.5 K/mm3 (1.8-7.8); Neutrophils % 74.4 % (37.0-80.0); Platelet Count 324 K/mm3 (142-424); Potassium 4.1 mmoL/L (3.5-5.1); Red Blood Count 5.21 M/mm3 (4.20-5.40); Red Cell Distribution Width 12.7 % (11.5-17.5); Sodium 141 mmol/L (136-145); White Blood Count 12.7 K/mm3 (4.8-10.8)
[2024-11-22 13:04] LABS: Alanine Aminotransferase 21 U/L (12-78); Albumin/Globulin Ratio 1.7 (1.1-1.8); Alkaline Phosphatase 59 U/L (38-126); Anion Gap 12.1 mEq/L (5-15); Aspartate Amino Transferase 25 U/L (14-36); Bilirubin,Total 0.2 mg/dl (0.2-1.3); Blood Urea Nitrogen 17 mg/dl (7-17); Carbon Dioxide 26 mmol/L (22.0-30.0); Creatinine Clearance Estimated 214 mL/min (50-200); Estimated Glomerular Filt Rate 146 ml/min (>60); GFR (African American) 177 ML/MIN (>60); Globulin 2.9 g/dL (1.3-3.2); Total Protein,Serum 7.8 g/dl (6.3-8.2)
[2024-11-22 13:05] LABS: Calcium 9.1 mg/dl (8.4-10.2); Glucose 88 mg/dl (74-100)
[2024-11-22 13:28] LABS: Microscopic, Urine URINE MICROSCOPIC (MICROSCOPIC)
[2024-11-22 13:30] VITALS: BP 116/75; PULSE 81; O2SAT 99
[2024-11-22 13:48] LABS: Urine Pregnancy, HCG Qual. Negative (Negative)
[2024-11-22 14:00] VITALS: BP 125/83; PULSE 81; O2SAT 100
[2024-11-22 14:19] LABS: Appearance,Urine Clear (Clear); Color,Urine Yellow (Yellow)
[2024-11-22 14:20] LABS: Bilirubin,Urine Negative (Negative); Blood, Urine 1+ (Negative); Glucose,Urine (UA) Negative (Negative); Ketones,Urine Negative (Negative); Leukocyte Esterase,Urine Negative (Negative); Nitrate,Urine Negative (Negative); PH,Urine 7.5 (5.0-8.5); Protein,Urine Trace (Negative); Urobilinogen,Urine 0.2 EU/dl (0.2); WBC,Urine Occasional #/hpf (0-3)
[2024-11-22 14:30] VITALS: BP 116/79; PULSE 80; O2SAT 100
--- NOTE | 2024-11-22 14:50 | PC.NURSE ---
Deshaun from lab called and reports that they are having trouble with the analyzer for a lipase. She states it should be 20 minutes and we will have results.
--- NOTE | 2024-11-22 15:15 | PC.NURSE ---
spoke to lab regarding pt lipase
[2024-11-22 15:16] LABS: Lipase 68 U/L (23-300)
[2024-11-22 15:19] VITALS: BP 106/76; BP 125/74; PULSE 87; RESP 18; TEMP 36.8; O2SAT 99
== END 2024-11-22 15:25 | disposition home or self-care (01) ==
PROVIDERS: Nurse Practitioner; Emergency Provider Student in an Organized Health Care Education/Training Program; PCP Physician Assistant
DX: R10.84 Generalized abdominal pain (principal)
CPT/HCPCS: 80053; 81001; 81025; 83690; 85025; 99284

== ENCOUNTER 2024-11-23 08:49 | Outpatient (CLI) | payer OTHER, SELFPAY ==
--- NOTE | 2024-11-23 08:53 | NM_ITS ---
FINAL REPORT CLINICAL HISTORY: DISEASE OF BILIARY TRACT 9:05AM 8.50 MCI TC CHOLETEC 1.6 MCG CCK NO PAIN WITH CCK COMPARISON: None FINDINGS: Sequential anterior projection images of the abdomen were obtained after the intravenous injection of 8.5 mCi technetium 99m Choletec. There is normal uptake of radiotracer by the liver. The bile ducts are visualized by time minutes. Gallbladder activity is seen by 25 minutes. Bowel activity is noted by 10 minutes. After 1 hour, 1.6 ?g of CCK was injected intravenously for calculation of gallbladder ejection fraction. The gallbladder ejection fraction is 23%, which is depressed. IMPRESSION: No evidence of cystic duct or bile duct obstruction. Depressed gallbladder ejection fraction of 23%. Reviewed, Interpreted and Dictated by Mike Ovalle MD Transcribed by Scarlet Suarez Authenticated and [facility]
[2024-11-23] MEDS: SODIUM CHLORIDE 0.9% 10ML SYR (RAD ONLY) 10 ML IV (10:53)
[2024-11-23] MEDS: ISOTOPE CHOLETECH;1 DOSE (UP TO 15 MCI) IV (10:53)
[2024-11-23] MEDS: SINCALIDE 1.6 MCG in 0.9 % SODIUM CHLORIDE 50 ML 100 MCG IV (10:53)
== END 2024-11-23 23:59 | disposition home or self-care (01) ==
LOC: RAD 08:51
PROVIDERS: PCP Physician Assistant; Visit Provider Physician Assistant
DX: K83.8 Other specified diseases of biliary tract (principal)
CPT/HCPCS: 78227; A9537; J2805

== ENCOUNTER 2024-11-26 06:15 | Day surgery (SDC) | payer OTHER, SELFPAY ==
[2024-11-20 11:46] VITALS: BMI 35.2
[2024-11-26] VITALS (9 sets, daily range): BP systolic 110–137; BP diastolic 60–88; PULSE 87–116; RESP 12–18; TEMP 36.3–36.9; O2SAT 96–100
--- NOTE | 2024-11-26 08:05 | EXP.ANES.CKL ---
[facility] Disclaimer: The information contained in this section may have been updated after the patient was seen, as this information can be updated by other users. Medical History Vitamin D deficiency (~05/21/18) Surgical History History of wisdom tooth extraction Hx of eye surgery Family History Other Cancer Social History Smoking Status: Never smoker alcohol intake: never substance use type: denies use current occupational status: unemployed Travel in the last 8 weeks: None household members: family housing: house caffeine: No Have you lived/traveled outside US in past 30 days?: No Contact w/someone who lives/traveled outside US past 30 days?: No Exposure to someone with infectious disease in past 14 days?: No Do you have a fever (greater than 100.4 F or 38 C)?: No Have you tested positive for COVID-19: No Exposed to someone with COVID-19 in past 14 days?: No Do you have a sore throat?: No Do you have a cough?: No Do you have any weakness?: No Do you have any diarrhea?: No Are you experiencing any unusual bleeding?: No Do you have any muscle aches/pain?: No Do you have any abdominal pain?: No Are you experiencing loss of taste or smell?: No [facility] Anesthesia Checklist Patient Identification Patient Identification: Arm Band Structural Data Admitted From: Home Planned Operative Procedure/s: Hysteroscopy, D&C, Myosure Ablation Consent for Planned Operative Procedure(s) Verified: Yes Verified Documents: Surgical Consent and History and Physical NPO Status Verified Time NPO: 00:00 Additional verifications Anesthesia Reactions: Yes (nausea) Hx Blood Transfusions: No Blood Transfusion Reaction: No Airway Assessment Mallampati Score:: Class II C-Spine Mobility Assessed: Yes TMJ Mobility Assessed: Yes Dentition: Good Dentition Neurological Assessment Level of Consciousness: Awake, Alert and Appropriate Anesthesia Plan Anesthesia Risk discussed: Yes Anesthesia Plan: Verified ASA Class: II Anesthesia Type: General
--- NOTE | 2024-11-26 08:57 | P.PNANES_ITS ---
[facility] Anesthesia Record Part I Anesthesia Record I Intake, IV Amount: 300 Hydration: Adequate Estimated blood loss (mL): 25 Urine output (mL): 0 Blood Products used (#): none Blood Pressure: 137/87 SaO2: 100 Pulse Rate: 98 Airway Patency: Patent Respiratory Rate: 18 Temperature: 98.5 F Patient is:: Awake and Stable Stable to PACU at:: 09:00
--- NOTE | 2024-11-26 09:11 | P.OP_ITS ---
Date of procedure: 11/26/24 Pre-op Diagnosis:: 1. Cervical polyp 2. Second trimester loss Post-op Diagnosis:: 1. Cervical polyp 2. Second trimester loss Procedure performed:: Hysteroscopy, dilation, and curettage Surgeon:: Venecia Wu DO WET PROCESS TECHNICIAN:: Other (pablo Buodreaux) Anesthesia: GETA Estimated blood loss (mL): 5 Operative findings:: Findings: -EUA revealed an anteverted 6-week uterus with regular contour. No significant prolapse or support defects noted. No cervical polyp noted -Hysteroscopy revealed proliferative endometrium. Operative note:: The patient was taken back to the OR where general anesthesia was obtained.? She was placed in the dorsal lithotomy position using yellow fin stirrups and sterilely prepped and draped in the usual fashion.? An in and out catheter was used to drain her bladder.? A timeout was performed.? A weighted speculum was used to visualize this cervix, a single-tooth tenaculum was applied to the anterior lip of the cervix. Immediately it was noted that the cervical polyp that was previously there in the office was not present. The cervix was only slightly dilated to allow entry to the ectocervix and hydrodisection was used to get the scope the rest of the way into the cavity. The hysterscope was inserted and proliferative endometrium was noted. Images were obtained of the cervical os and uterine cavity. The tubal ostia were visible.? Hysteroscope removed. A #2 sharp curette was introduced through the cervical os and gently advanced to the fundus.? The endometrial cavity was sharply curetted 360 degrees.? Endometrial curettings were collected on a Telfa pad, passed off the operative field and sent to pathology for further evaluation.? The single-tooth tenaculum was removed and hemostasis was noted at the tenaculum sites.? All instruments were removed from the vagina.? All counts were correct, per nursing.? This concluded the procedure, the patient was awakened from anesthesia, and transferred to the PACU in stable condition. Condition: stable Disposition: same day Specimens:: Endometrial curettings Complications:: None
--- NOTE | 2024-11-26 09:46 | SUR.PHASEII ---
pt refused prescribed pain meds sent to clinic pharmacy. clinic pharmacy notified
--- NOTE | 2024-11-26 10:09 | SUR.PHASEII ---
[id number]- Alexus Gongora, Patient Experience, at bedside
--- NOTE | 2024-11-27 10:31 | P.PNANES_ITS ---
[facility] Anesthesia Record Part II Anesthesia Record Part II Discharge Time: 09:20 Destination: Surgical Day Care (OP Surgery) PACU nurse assessment reviewed?: Yes Patient Condition:: Good Anesthesia Complications:: None Swallowing reflex intact?: Yes Airway Patency: Patent Cyanosis?: No Blood Pressure: 136/88 SaO2: 100 Respiratory Rate: 12 Pulse Rate: 87 Temperature: 97.4 F Mental Status: Alert & Oriented Pain level:: 0 Nausea and/or vomitting:: None Intake, IV Amount: 0 Hydration: Adequate
[2024-11-27 10:32] VITALS: BP 136/88; PULSE 87; RESP 12; TEMP 36.3; O2SAT 100
== END 2024-11-26 09:55 | disposition home or self-care (01) ==
PROVIDERS: PCP Physician Assistant; Visit Provider Obstetrics & Gynecology
PROC: 0UDB8ZZ Extraction of Endometrium, Via Natural or Artificial Opening Endoscopic (ICD-10-PCS; CPT 58558; principal; 2024-11-26 08:15)
DX: N84.1 Polyp of cervix uteri (principal); O03.9 Complete or unspecified spontaneous abortion without complication
CPT/HCPCS: 58558; J1100; J1200; J1885; J2250; J2405; J3010

== ENCOUNTER 2024-12-21 09:02 | Day surgery (SDC) | payer OTHER, SELFPAY ==
[2024-12-18 10:00] VITALS: BMI 35.2
[2024-12-21 10:06] VITALS: BP 136/76; PULSE 121; RESP 18; TEMP 36.8; O2SAT 99
[2024-12-21 10:11] LABS: Urine Pregnancy, HCG Qual. Negative (Negative)
[2024-12-21] MEDS: LACTATED RINGERS 1000ML 1,000 ML 50 ML IV (10:18)
--- NOTE | 2024-12-21 10:40 | ECG_ITS ---
APPROVED REPORT Exam: Resting ECG HR:108 bpm ECG Measurements Heart Rate 108 AXES WI 170 P 29 QRSd 90 QRS 1 QT 348 T 18 QTc 411 Conclusion SINUS TACHYCARDIA ABNORMAL RHYTHM ECG UNCONFIRMED REPORT Electronically signed by : Ignacio Wolf MD 12/22/2024 08:49:24
--- NOTE | 2024-12-21 10:48 | P.PNANES_ITS ---
[facility] Disclaimer: The information contained in this section may have been updated after the patient was seen, as this information can be updated by other users. Medical History Incomplete Vitamin D deficiency (~05/21/18) Surgical History History of tonsillectomy History of D&C History of wisdom tooth extraction Hx of eye surgery Family History (Updated 12/21/24 @ 10:17 by Henna Boyce RN) Other Cancer Colon cancer Heart disease Social History (Updated 12/21/24 @ 10:17 by Henna Boyec RN) Smoking Status: Never smoker alcohol intake: never substance use type: denies use current occupational status: unemployed Travel in the last 8 weeks: None household members: family housing: house caffeine: Yes Have you lived/traveled outside US in past 30 days?: No Contact w/someone who lives/traveled outside US past 30 days?: No Exposure to someone with infectious disease in past 14 days?: No Do you have a fever (greater than 100.4 F or 38 C)?: No Have you tested positive for COVID-19: No Exposed to someone with COVID-19 in past 14 days?: No Do you have a sore throat?: No Do you have a cough?: No Do you have any weakness?: No Are you experiencing any nausea/vomitting?: No Do you have any diarrhea?: No Are you experiencing any unusual bleeding?: No Do you have any muscle aches/pain?: No Do you have any abdominal pain?: No Are you experiencing loss of taste or smell?: No [facility] Anesthesia Checklist Patient Identification Patient Identification: Arm Band Structural Data Admitted From: Home Planned Operative Procedure/s: EGD/Colonoscopy Consent for Planned Operative Procedure(s) Verified: Yes Verified Documents: Surgical Consent and History and Physical NPO Status Verified Time NPO: 07:30 (finished prep) Additional verifications Anesthesia Reactions: Yes (nausea) Hx Blood Transfusions: No Blood Transfusion Reaction: No Airway Assessment Mallampati Score:: Class II C-Spine Mobility Assessed: Yes TMJ Mobility Assessed: Yes Dentition: Good Dentition Neurological Assessment Level of Consciousness: Awake, Alert and Appropriate Anesthesia Plan Anesthesia Risk discussed: Yes Anesthesia Plan: Verified ASA Class: II Anesthesia Type: MAC
[2024-12-21 11:18] VITALS: O2SAT 100
--- NOTE | 2024-12-21 11:27 | P.HP_ITS ---
History of Present Illness *Admission Date: 12/21/24 *Reason for visit:: Generalized abdominal pain, gassiness, bloating and belching *History of present illness: Mrs. Perez is a 29-year-old female who is here for diagnostic panendoscopy. The patient has been having generalized abdominal pain with gassiness, bloating and belching. The examination is deemed medically necessary for diagnostic panendoscopy. The patient has been seen, interviewed and examined prior to the procedure by both myself and the anesthesia provider. [facility] Disclaimer: The information contained in this section may have been updated after the patient was seen, as this information can be updated by other users. Medical History (Updated 12/21/24 @ 11:29 by Kenyon Haider II, MD) Incomplete Vitamin D deficiency (~05/21/18) Surgical History History of tonsillectomy History of D&C History of wisdom tooth extraction Hx of eye surgery Family History (Updated 12/21/24 @ 10:17 by Henna Boyce RN) Other Cancer Colon cancer Heart disease Social History (Updated 12/21/24 @ 10:17 by Henna Boyce RN) Smoking Status: Never smoker alcohol intake: never substance use type: denies use current occupational status: unemployed Travel in the last 8 weeks: None household members: family housing: house caffeine: Yes Have you lived/traveled outside [place] in past 30 days?: No Contact w/someone who lives/traveled outside US past 30 days?: No Exposure to someone with infectious disease in past 14 days?: No Do you have a fever (greater than 100.4 F or 38 C)?: No Have you tested positive for COVID-19: No Exposed to someone with COVID-19 in past 14 days?: No Do you have a sore throat?: No Do you have a cough?: No Do you have any weakness?: No Are you experiencing any nausea/vomitting?: No Do you have any diarrhea?: No Are you experiencing any unusual bleeding?: No Do you have any muscle aches/pain?: No Do you have any abdominal pain?: No Are you experiencing loss of taste or smell?: No Other Medical History Have you received the Flu Vaccine for this season: No Have you received the Pneumonia Vaccine: No Review of Systems Review of Systems Review of systems (narrative): Negative *Cardiovascular Comments: Negative *Gastrointestinal Comments: Negative *Genitourinary Comments: Negative *Musculoskeletal Comments: Negative *Neurologic Comments: Negative Meds Home Medications and Allergies Home Medications ?Medication ?Instructions ?Recorded ?Confirmed ?Type sodium,potassium,mag sulfates 17.5 See Rx Instructions PO .COMPLEX 12/07/24 12/10/24 Rx gram-3.13 gram-1.6 gram oral soln #354 mL (Suprep Bowel Prep Kit) sodium sul 1.479 gram-potas ch See Rx Instructions PO PER PKG DIR 12/09/24 12/10/24 Rx 0.188 gram-magnes sul 0.225 gram colonscopy #24 tabs tablet (Sutab) [id number] 1 mg 1 tab PO DAILY 12/18/24 12/21/24 History tablet New Prescriptions to Start Prescriptions: Allergies Allergy/AdvReac Type Severity Reaction Status Date / Time calamine (From Calamine Plus AdvReac Severe Skin Verified 12/21/24 10:08 (pramox-calamin)) Swelling pramoxine (From Calamine AdvReac Severe Skin Verified 12/21/24 10:08 Plus (pramox-calamin)) Swelling Exam Data for Last 24 hours Vital signs and Labs for Last 24 Hours: Temp Pulse Resp BP Pulse Ox O2 Del Method O2 Flow Rate 98.2 F 121 H 18 136/76 99 Nasal Cannula 5 12/21/24 10:06 12/21/24 10:06 12/21/24 10:06 12/21/24 10:06 12/21/24 10:06 12/21/24 11:18 12/21/24 11:18 Laboratory Results - last 24 hr 12/21/24 09:58: Urine HCG, Qual Negative I & O for Last 24 hours: Intake & Output 12/18/24 12/19/24 12/20/24 12/21/24 23:59 23:59 23:59 23:59 Weight 180 lb *Routine HEENT Exam Head: Present normocephalic Eye: Present EOMI and PERRL ENT: Present mucous membranes moist *Routine Neck Exam Neck: Present supple *Routine Respiratory Exam Respiratory: Present CTA bilaterally *Routine Cardiovascular Exam Cardiovascular: Present RRR *Routine Abdominal Exam Abdominal: Present soft and normoactive bowel sounds; Absent tenderness *Routine Rectal Exam Rectal:: deferred *Routine Genitalia Exam Genitalia:: deferred *Routine Extremities Exam Extremities: Absent cyanosis, clubbing or edema *Routine Skin Exam Skin: Present warm; Absent rash *Routine Neurological Exam Neurological: Present alert and oriented X3 Assessment and Plan *Assessment and plan (1) Generalized abdominal pain: Status: Acute Category: Medical Code(s): R10.84 - Generalized abdominal pain (2) Bloating: Status: Acute Category: Medical Code(s): R14.0 - Abdominal distension (gaseous) (3) Belching: Status: Acute Category: Medical Code(s): R14.2 - Eructation (4) Gallbladder sludge: Status: Acute Category: Medical Code(s): K82.8 - Other specified diseases of gallbladder (5) Biliary dyskinesia: Status: Acute Category: Medical Code(s): K82.8 - Other specified diseases of gallbladder Plan A/P: 1. Generalized abdominal pain, bloating, belching is the preprocedural diagnosis. The patient will be anesthetized/sedated using MAC sedation. The patient has been seen and examined. Cardiac and lung assessment prior to the examination is stable. Proceed with planned diagnostic EGD and colonoscopy.
--- NOTE | 2024-12-21 11:34 | P.PCN_ITS ---
[facility] Procedure Note Date: 12/21/24 Time: 11:34 Procedure Note:: Upper Endoscopy Procedure Report: Esophagogastroduodenoscopy with cold biopsies Endoscopost: Kenyon Haider II, MD Referring Physician: Yvonne Frank PA-C Date of Procedure: December 21, 2024 Equipment: Olympus GIF 190 standard upper endoscope Sedation: MAC sedation Indications: Mrs. Perez is a 29-year-old female who is here for diagnostic EGD and colonoscopy. The patient has had generalized abdominal pain for 6 to 8 weeks which has been improving recently and subsided after using apple cider vinegar. She was also having moderate bloating, gassiness and belching. She did have an ultrasound of the gallbladder that showed some gallbladder sludge. Her HIDA scan performed subsequently showed a 23% gallbladder ejection fraction but symptoms were not reproduced with cholecystokinin/CCK. She has seen general surgery/Zeb Xavier MD in regard to possible biliary/gallbladder dyskinesia. The patient reports no heartburn or reflux. She has had no nausea, early satiety or dysphagia. She reports no rectal bleeding or weight loss. She has regular bowel function. She does state that her maternal grandmother had colon cancer in her mid 30s. Procedure: Prior to the procedure, a history and physical exam was performed, and patient's medications and allergies were reviewed. The risks, benefits and alternatives of the sedation and procedure were discussed with the patient. All questions were answered and informed consent was obtained. The patient was brought to the procedure room. Patient identification and proposed procedure were verified by the physician and the nurse. The patient was placed in a left lateral decubitus position and the scope was passed under direct vision. Throughout the procedure, the patient's blood pressure, pulse, and oxygen saturations were monitored continuously. The upper GI endoscopy was accomplished without difficulty. The patient tolerated the procedure well. Findings: The scope was passed directly into the upper esophagus and advanced to the third portion of the duodenum. The post bulbar duodenum and duodenal bulb were normal with normal mucosa and conniventes. There was no scalloping of the conniventes. Cold biopsies were taken from the duodenal bulb to rule out celiac disease. The scope was withdrawn through a normal duodenal bulb and pylorus into the stomach. There was bile reflux with mild linear reactive gastropathy of antrum. The body and fundus of the stomach were normal. Upon retroflexion there was no hiatal hernia. Biopsies were taken from the antrum. The scope was then withdrawn into the esophagus. There was no evidence of reflux esophagitis or Valiente's. The remainder of the esophageal mucosa was normal. Impression: 1. Mild antral gastropathy with bile reflux Plan: I will discuss the findings with the patient and family and follow-up the biopsies. I will also proceed with diagnostic colonoscopy. I do feel that the patient has had functional dyspepsia more so than biliary dyskinesia. The patient is clinically improved and I would not recommend cholecystectomy at this time.
--- NOTE | 2024-12-21 11:38 | HMH.PROCNOTE ---
[facility] Procedure Note Date: 12/21/24 Procedure Note:: Colonoscopy Procedure Report: Colonoscopy with cold snare polypectomy Endoscopist: Kenyon Haider II, MD Referring physician: Yvonne Frank PA-C Date of Procedure: December 21, 2024 Equipment: Olympus 190 variable stiffness pediatric colonoscope Sedation: MAC sedation Indication: Mrs. Perez is a 29-year-old female who is here for diagnostic EGD and colonoscopy. The patient has had generalized abdominal pain for 6 to 8 weeks which has been improving recently and subsided after using apple cider vinegar. She was also having moderate bloating, gassiness and belching. She did have an ultrasound of the gallbladder that showed some gallbladder sludge. Her HIDA scan performed subsequently showed a 23% gallbladder ejection fraction but symptoms were not reproduced with cholecystokinin/CCK. She has seen general surgery/Zeb Xavier MD in regard to possible biliary/gallbladder dyskinesia. The patient reports no heartburn or reflux. She has had no nausea, early satiety or dysphagia. She reports no rectal bleeding or weight loss. She has regular bowel function. She does state that her maternal grandmother had colon cancer in her mid 30s. Procedure: Prior to the procedure, a history and physical exam was performed, and patient's medications and allergies were reviewed. The risks, benefits and alternatives of the sedation and procedure were discussed with the patient. All questions were answered and informed consent was obtained. The patient was brought to the procedure room. Patient identification and proposed procedure were verified by the physician and the nurse. The patient was placed in a left lateral decubitus position and the scope was passed under direct vision. Throughout the procedure, the patient's blood pressure, pulse, and oxygen saturations were monitored continuously. The colonoscopy was accomplished without difficulty. The patient tolerated the procedure well. Findings: On digital rectal examination there was normal rectal tone. There were no external hemorrhoids. The colonoscope was introduced through the anal canal to the rectum and advanced to the cecum. The ileocecal valve and appendiceal orifice were identified. The scope was advanced a short distance into the ileum which appeared grossly normal. The scope was then withdrawn into the colon. There was a single diminutive 3 to 4 mm transverse colon polyp removed via cold snare polypectomy. The remaining cecum, ascending, transverse, descending, sigmoid and rectum were grossly normal. There were no other mucosal abnormalities identified. Upon retroflexion within the rectum there were grade 1 internal hemorrhoids. The preparation was excellent throughout with [place] Preparation Score of 9. The cecal time was 12 minutes. Impression: 1. Diminutive 3 to 4 mm transverse colon polyp 2. Grade 1 internal hemorrhoids Plan: There is no clear etiology for the patient's functional abdominal pain/functional dyspepsia. I do feel that this is related to stress and miscarriage more so than biliary dyskinesia. I will discuss the findings with the patient and family. I will follow-up the polyp histology and if the polyp is hyperplastic, she will not require surveillance colonoscopy until age 45 by ACS guidelines.
[2024-12-21 11:52] VITALS: BP 93/54; PULSE 92; RESP 16; TEMP 36.4; O2SAT 96
[2024-12-21 12:02] VITALS: BP 92/52; PULSE 87; RESP 16; O2SAT 98
[2024-12-21 12:12] VITALS: BP 97/63; PULSE 83; RESP 16; O2SAT 100
[2024-12-21 12:18] VITALS: BP 110/62; PULSE 86; RESP 18; O2SAT 100
== END 2024-12-21 12:25 | disposition home or self-care (01) ==
PROVIDERS: PCP Physician Assistant; Visit Provider Internal Medicine Gastroenterology
PROC: 0DJ08ZZ Inspection of Upper Intestinal Tract, Via Natural or Artificial Opening Endoscopic (ICD-10-PCS; CPT 45378; principal; 2024-12-21 11:00)
DX: K31.9 Disease of stomach and duodenum, unspecified (principal); K63.5 Polyp of colon; K64.0 First degree hemorrhoids; R10.84 Generalized abdominal pain; R14.0 Abdominal distension (gaseous); R14.2 Eructation; K82.8 Other specified diseases of gallbladder
CPT/HCPCS: 43239; 45385; 81025; 93005; J7120

== ENCOUNTER 2025-02-25 08:54 | Outpatient (CLI) | payer OTHER, SELFPAY ==
--- OUTSIDE RECORDS SUMMARY | 2025-02-25 08:56 | XMS_ITS | Clinical Summary ---
Author Organization [facility] [place] Address [address] [id number] Phone Care Team Providers Care Pediatric Psychologist Name Role Phone Unavailable Primary Care Provider Unavailabl e Allergies No known active allergies Medications azelastine (ASTELIN) 137 mcg (0.1 %) Nasl Aerosol, SprayIndication s:Chronic rhinitis 2 Sprays in each nostril 2 times daily. 30 mL 5 11/05/2022 Active loratadine (CLARITIN) 10 mg Oral TabletIndicatio ns:Chronic rhinitis Take 1 Tablet by mouth daily. 30 Tablet 11/05/2022 Active Social History Tobacco Use Types Packs/Day Years Used Date Smoking Tobacco: Never Smokeless Tobacco: Never Alcohol Use Standard Drinks/Week Comments Never 0 (1 standard drink = 0.6 oz pur e alcohol) Comments No Sex and Gender Information Value Date Recorded Sex Assigned at Not on file Legal Sex Female 2:19 PM EST Gender Identity Not on file Sexual Orientation Not on file Obstetrics History Last Filed Vital Signs Vital Sign Reading Time Taken Comments Blood Pressure 111/77 11/05/2022 1:56 PM EST Pulse 85 11/05/2022 1:56 PM EST Temperature 36.2 C (97.2 F) 11/05/2022 1:56 PM EST Respiratory Rate - - Oxygen Saturation - - Inhaled Oxygen Concentration - - Weight 83.5 kg (184 lb) 11/05/2022 1:56 PM EST Height 152.4 cm (5') 11/05/2022 1:56 PM EST Body Mass Index 35.94 11/05/2022 1:56 PM EST Plan of Treatment Health Maintenance Due Date Last Done Comments Annual Wellness Exam 1998 DTaP/TDaP/Td (1 - Tdap) 2014 Hepatitis B Vaccine (1 of 3 - 19+ 3-dose series) 2014 Cervical Cancer Screening 2016 Pap Smear 2016 COVID-19 Vaccine ( - 2023-2 5 season) 2024 Influenza Vaccine (Season Ended) 2025 Meningococcal B Vaccine Aged Out No l onger eligible based on patient's age to complete this topic Pneumococcal Vaccine 0-49 Aged Out No longer eligible based on patient's age to complete this topic
[2025-03-01 05:08] LABS: Pancreatic Elastase, Fecal >800 (>200)
== END 2025-02-25 23:59 | disposition home or self-care (01) ==
LOC: LAB 08:54
PROVIDERS: PCP Physician Assistant; Visit Provider Nurse Practitioner Family
DX: R14.0 Abdominal distension (gaseous) (principal)
CPT/HCPCS: 82656

== ENCOUNTER 2025-03-31 10:35 | Outpatient (CLI) | payer OTHER, SELFPAY ==
--- OUTSIDE RECORDS SUMMARY | 2025-03-31 10:39 | XMS_ITS | Clinical Summary ---
Author Organization [facility] [place] Address [address] [address] Phone Care Team Providers Care Automotive Painter Name Role Phone Unavailable Primary Care Provider [...] - 2023-2 5 season) 2024 Influenza Vaccine (#1) 2025 Meningococcal B Vaccine Aged Out No l onger eligible based on patient's age to complete this topic Pneumococcal Vaccine 0-49 Aged Out No longer eligible based on patient's age to complete this topic
--- OUTSIDE RECORDS SUMMARY | 2025-03-31 10:39 | XMS_ITS | Data Portability ---
Author Organization [employer] [facility] Address [address] [facility] [place] [address] Assessment No assessment recorded. Plan of Treatment Reminders Order Date Submit Date Provider Last Modified By Organization Details Last Modified Time Details Appointments None recorded. Lab None recorded. Referral cardiologis t referral - first available appt 2024 025 JAYRO Morgan MD, [facility] [address], [place], [address], 5 09:25:03 Procedures colonoscopy procedure (PROC) 2023 024 JAYRO Haider MD, [address] [facility] [address], [place], [address], 5 14:54:04 Surgeries None recorded. Imaging US, gallbladder - first available appt 2024 025 [facility] Scheduling Department -New Scheduling Process, [address], [place], [address], 5 10:33:31 Medication Orders None recorded. Patient TargetsNo targets recorded. Patient Instructions Encounter Date Encounter Id Patient Instructions Last Modified By Organization Details Last Modified Time 11/10/2024 [id number] chest pain: care instructions [email or web address] Not available 11/10/2024 13:39:56 Reason for Referral Physician [facility] Referral for Ch est pain first available appt Referring Physician: [facility], Encounter Date: 11/10/2024 [facility]ician [facility] Referral for Ch est pain Referring Physician: [facility], Encounter Date: 03/30/2025 Results Created Date Observation Date Name Description Value Unit Range Abnormal Flag Note LastModifiedBy Organization Detail LastModifiedTime 11/20/1911/16/2024 , ilene russell r No observ ation record ed. [address] (Med Record) [address], [place], [address], 11/19/2024 11:38:53 11/20/19 25 11/16/2024 [place], ilene russell r No observ ation record ed. [address], [place], [address], 11/19/2024 11:38:53 11/28/1911/23/2024 NM, hepat obili chasity scan No observ ation record ed. [address] (Med Record) [address], [place], [address], 11/27/2024 16:05:09 Result Notes None recorded. Problems Name Problem SNOMED Code Status Onset Date Resolution Date Notes Provider Name and Address Organization Details Recorded Time Chest pain 00531398 Active [facility] ALYSSA Mcpherson [address] [place] [address], [phone] , [employer] 5 10:01:36 Atypical chest pain 900861836 Active ALYSSA Hollis [address] [place] [address], [phone] , [employer] 5 15:10:17 Problem Notes None recorded. Procedures Surgical History Date Name Laterality Status Provider Name and Address Organization Details Recorded Time 4 Date of Last Pap Smear completed Leia Rodriguez [employer] 11/10/2024 16:10:28 Eye Surgery completed Venecia Paredes [employer] 08/28/2024 14:08:54 Imaging Results None recorded. Procedure Notes None recorded. Medical Equipment None Reported. Allergies No known drug allergies Medications Name Sig Start Date Stop Date Status Note LastModified by Organization Details LastModified Time Iron (ferrous sulfate) 325 mg (65 mg iron) tablet Take 1 tablet every other day by oral route. active Not Available Not Available No t Available dicyclomine 20 mg tablet TAKE 1 TABLET BY MOUTH TWICE DAILY 03/30 completed Not Available Not Available Not Available progesteron e micronized 200 mg capsule INSERT 1 CAPSULE VAGINALLY ONCE DAILY AT BEDTIME NIGHTLY 08/28 completed Not Available Not Available Not Available prenat vit-iron cb-FA-DSS-d zuluaga active Not Available Not Available Not Available Xifaxan 550 mg tablet TAKE 1 TABLET BY MOUTH THREE TIMES DAILY FOR 14 DAYS active Not Available Not Available No t Available prenat vit 106-iron 25 mg-folic acid 1 mg-om3 400 mg-dha-epa oral pack Take by oral route. 08/28 completed Not Available Not Available Not Available Sutab 1.479-0.188 -0.225 gram tablet SEE ATTACHED DIRECTION S 03/30 completed Not Available Not Available Not Available Vitals Date Recorded Body height Body mass index (BMI) Body weight Heart rate Oxygen saturation Oxygen saturation in Arterial blood by Pulse oximetry Body temperature Systolic And Diastolic Provider Name and Address Organization Details Last Updated DateTime 5 152.4 cm 36.8 kg/m2 48104.0 8 g 90 /min 98 % 98 % 98.5 [degF] 106/74 mm[Hg] Jam[employer], [employer] 5 13:27:11 Date Recorded Body height Body mass index (BMI) Body weight Body temperature Heart rate Oxygen saturation Oxygen saturation in Arterial blood by Pulse oximetry Systolic And Diastolic Provider Name and Address Organization Details Last Updated DateTime 5 152.4 cm 37.9 kg/m2 41257.9 2 g 98 [degF] 88 /min 97 % 97 % 122/80 mm[Hg] [employer] 5 09:46:30 Date Recorded Body weight Body mass index (BMI) Body height Oxygen saturation Oxygen saturation in Arterial blood by Pulse oximetry Heart rate Systolic And Diastolic Provider Name and Address Organization Details Last Updated DateTime 4 55293.6 3 g 35.2 kg/m2 152.4 cm 99 % 99 % 79 /min 120/79 mm[Hg] Venecia Paredes [employer] 14:13:16 Social History Question Answer Notes LastModified by Organizat ion Details LastModified Time Tobacco Smoking Status Never Smoker Venecia [email or web address]-[email or web address] [employer] 08/28/2024 14:08:54 Do You Have An Advance Directive? No [email or web address] Information n ot available 08/28/2024 Is Your Home Air Conditioned? Yes Information not available 08/28/2024 If You Are , What Was Your Level Of Alcohol Consumption Prior To ? None [email or web address] Information not available 08/28/2024 Are You Blind Or Do You Have Difficulty Seeing? No [email or web address] Information n ot available 08/28/2024 What Is Your Level Of Caffeine Consumption? Occasional Information not available 08/28/2024 Are You A Caregiver? No Information not available 08/28/2024 In The 14 Days Before Symptom Onset, Have You Had Close Contact With A Laboratory-confirm ed COVID-19 While That Case Was Ill? No [email or web address] Information n ot available 08/28/2024 In The 14 Days Before Symptom Onset, Have You Had Close Contact With A Person Who Is Under Investigation For COVID-19 While That Person Was Ill? No [email or web address] Information not available 08/28/2024 Have You Been To An Area Known To Be High Risk For COVID-19? No [email or web address] Information not available 08/28/2024 Are You Deaf Or Do You Have Serious Difficulty Hearing? No [email or web address] Information not available 08/28/2024 What Type Of Diet Are You Following? REGULAR [email or web address] Information n ot available 08/28/2024 Have There Been Any Changes To Your Family Or Social Situation? No [email or web address] Information no t available 08/28/2024 Are There Any Guns Present In Your Home? Yes [email or web address] Information not available 08/28/2024 Which Of Your Hands Is Dominant? Right [email or web address] Information n ot available 08/28/2024 Do You Have A Medical Power Of Case Resource Manager? No [email or web address] Information not available 08/28/2024 What Was The Date Of Your Most Recent Tobacco Screening? 03/30/2025 Information not available 03/30/2025 Do You Have Any Pets? Yes [email or web address] Information not available 08/28/2024 Do You Use Protection During Sex? No [email or web address] Information not available 08/28/2024 What Is Your Relationship Status? [email or web address] Information not available 08/28/2024 Have You Repeated Any Grades? No [email or web address] Information not available 08/28/2024 Do You Use Your Seat Belt Or Car Seat Routinely? Yes [email or web address] Information not available 08/28/2024 Are You Sexually Active? Yes Information not available 08/28/2024 Do You Have Smoke And Carbon Monoxide Detectors In Your Home? Yes [email or web address] Information not available 08/28/2024 Are You Passively Exposed To Smoke? No Information no t available 11/10/2024 Are There Any Smokers In Your House? No [email or web address] Information not available 08/28/2024 Do You Participate In Social Media? Yes Information not available 08/28/2024 Do You Use Sunscreen Routinely? Yes [email or web address] Information not available 08/28/2024 Has Tobacco Cessation Counseling Been Provided? No Information not available 11/10/2024 Have You Recently Traveled Abroad? No [email or web address] Information not available 08/28/2024 Do You Have Difficulty Walking Or Climbing Stairs? No [email or web address] Information not available 08/28/2024 Are You Currently In School? No Information not available 11/10/2024 Do You Have Any Dietary Restrictions? No [email or web address] Information not available 08/28/2024 Sex: Female Functional Status Question Answer Note LastModified by Organizat ion Details LastModified Time Do you use any illicit or recreational drugs? No [email or web address] Information not available 08/28/2024 Do you or have you ever used any other forms of tobacco or nicotine? No Information not available 11/10/2024 What is your level of alcohol consumption? None [email or web address] Information not available 08/28/2024 Are you currently employed? No [email or web address] Information not available 08/28/2024 Do you have transportation difficulties? No [email or web address] Information not available 08/28/2024 Are you able to walk? YESWOREST [email or web address] Information not available 08/28/2024 Do you have difficulty doing errands alone? No [email or web address] Information not available 08/28/2024 Are you able to care for yourself? Yes [email or web address] Information not available 08/28/2024 Do you have difficulty dressing or bathing? No [email or web address] Information not available 08/28/2024 What is your exercise level? Moderate [email or web address] Information not available 08/28/2024 Mental Status Question Answer Note LastModified by Organizat ion Details LastModified Time Do you feel stressed (tense, restless, nervous, or anxious, or unable to sleep at night)? [id number] Information not available 11/10/2024 Do you have difficulty concentrating, remembering or making decisions? No [email or web address] Information no t available 08/28/2024 Are you or have you been involved with bullying? No Information not available 08/28/2024 Family History Relationship Description Onset Age of this Age Resolved Age Notes LastModified by Organization Details LastModified Time Paternal Grandmother Diabetes mellitus [email or web address] Not available 2023 14:08:54 Mother Arthritis [email or web address] Not availab le 08/28/2024 14:08:54 Maternal Grandmother Arthritis [email or web address] Not available 14:08:54 Maternal Grandfather Malignant tumor of colon [email or web address] Not available 2023 14:08:54 Father Hypertensive disorder [email or web address] Not available 2023 14:08:54 Medical History Condition Response Coronary Artery Disease N Other N Gout N Blood Diseases N Kidney Stones N Hyperthyroidism N Blood Transfusion N Breast Cancer N Emergency room visit since last appointm ent. N Lung Disease N COPD N Depression N Hypothyroidism N Dermatologic Disorders N Defects or Inherited Disease N Developmental or Behavioral Disorders N Breast Problem N Difficulty Swallowing N Anesthesia Complications N History of STI N Anxiety Disorder N Meniere's disease N Autoimmune disease N Muscle, Joint, or Bone Problems N Vision or Eye Problems N Arthritis N Infertility N Polyps N Mental Disorder N Congenital Anomalies N Acid Reflux (GERD) N Cancer N Stroke N Neurologic/Epilepsy N Endometriosis N Bladder or Kidney Problems N High Cholesterol N Liver Disease N Organ Transplant N Psychiatric/Mental Health Condition N Dialysis N Headaches N Fibromyalgia N Schizophrenia N Kidney Disease N Allergies/Hayfever N Heart Problems N Ear or Hearing Problems N Hospitalizations N Learning Disorder N Artificial Joints N Thyroid Problems N GI Problems N Acne N ADD/ADHD N Eating Disorder N Anemia N Constipation N Mental Illness N Diabetes N Ovarian Cancer N Bedwetting N Hepatitis/Liver Disease N Tuberculosis N Eczema N Abuse/Domestic Violence N Diverticulitis N Asthma N Trauma/Violence N Substance Abuse N Reflux/GERD N Depression/ depression N Hepatitis N Heart Disease N Pulmonary Embolism N Tourette Syndrome N Chronic Ear Infections N Pre-Eclampsia N Hypertension N Chicken Pox N Autism Spectrum Disorder (ASD) N Osteoporosis N Thrombophilias N Gynecological History Statement/Question Response Abnormal Pap N Flow Heavy Date of LMP 02/26/2025 Menses Monthly Y Date of Last Pap Smear 06/10/2024 Current Control Method Seeking Pre gnancy Most Recent Mammogram LMP Approximate Obstetrics History GPAL:G 1 P 0 0 1 0 Type Value Multiple Births 0 Full Term 0 Induced 0 Spontaneous 1 Premature 0 Living 0 Ectopics 0 Total 1 Past Encounters Encounter ID Performer Location Encounter Start Date Encounter Closed Date Diagnosis/Indication Diagnosis SNOMED-CT Code Diagnosis ICD10 Code Diagnosis Note [id number] Yvonne Frank [address] [address] 08/28/2024 13:54:33 08/28/2024 14:42:30 Family history of cancer of colon 143461714 Z80.0 [id number] Y[address]ne F[address] [address] 11/10/2024 13:16:26 11/10/2024 13:38:51 Chest pain 60129274 R07.9 [id number] Yvonne Frank[address] [address] 03/30/2025 09:26:15 03/30/2025 10:11:21 Chest pain 64165696 R07.9 Dizziness 996680341 R42 HIV screening 983055495 Z11.4 Viral scre ening status 921118035 Z11.59 Health Concerns Section Related Observation LastModified by Organization Detai ls LastModified Time None Recorded Concern Status LastModified by Organization Details LastModified Time None Recorded Advance Directives Directive N: Payers Insurance Date Sequence Insurance Name Policy Number Policy Mondragon Covered Member ID Mondragon Member ID Guarantor Name 03/27/2025 1 [place] [id number] Sinai Perez [id number] Sinai Perez 10/30/2024 1 [employer] - [place] (PPO) Sinai Perez [id number] Sinai Perez 09/03/2024 1 [employer] - PHCS Sinai Perez [id number] Sinai Perez 03/30/2025 PAYMENT PLAN Sinai Perez Notes Date Note Type Note Provider Name and Address Organization Details Recorded Time 08/28/2024 text/html Patient would li ke to schedule colonoscopy.Grandf ather diagnosed with colon cancer in his early 30s.Mother started early screening - no cancer, but has polyps removed each time ALYSSA Mcpherson [address] [place] [address], [phone], [employer] 08/28/2024 15:38:29 11/10/2024 text/html Patient presents for followup. States she was recently seen in ER for chest pain. ER doctor advised she be referred to web developer and crozer . Already has appt [facility] gastro in December to discuss screening colonoscopy. Has surgical procedure scheduled 11/26 to remove polyp on cervix. ALYSSA Mcpherson [address] [place], [address], [employer] 12/07/2024 15:10:00 OBGyn Episode No OBEpisode recorded.
[2025-03-31 11:28] LABS: Hematocrit 43.1 % (37.0-47.0); Hemoglobin 13.2 g/dL (12.2-16.2); Immature Granulocytes % 0.3 %; Mean Corpuscular HGB Conc 30.6 g/dL (31.8-35.4); Mean Corpuscular Hemoglobin 25.3 pg (27.0-31.2); Mean Corpuscular Volume 82.6 fl (81-99); Nucleated Red Blood Cells % 0 %; Platelet Count 324 K/mm3 (142-424); Red Blood Count 5.22 M/mm3 (4.20-5.40); Red Cell Distribution Width-SD 40.0 fL; White Blood Count 11.2 K/mm3 (4.8-10.8)
[2025-03-31 11:55] LABS: Albumin Level 4.6 g/dl (3.5-5.0); Chloride 100 mmol/L (98-107); Potassium 4.2 mmoL/L (3.5-5.1); Sodium 135 mmol/L (136-145)
[2025-03-31 11:58] LABS: Alanine Aminotransferase 17 U/L (12-78); Albumin/Globulin Ratio 1.6 (1.1-1.8); Alkaline Phosphatase 69 U/L (38-126); Anion Gap 11.2 mEq/L (5-15); Aspartate Amino Transferase 23 U/L (14-36); Bilirubin,Total 0.8 mg/dl (0.2-1.3); Blood Urea Nitrogen 12 mg/dl (7-17); Calcium 9.5 mg/dl (8.4-10.2); Carbon Dioxide 28 mmol/L (22.0-30.0); Cholesterol 191 mg/dl (140-200); Creatinine,Serum 0.50 mg/dl (0.52-1.04); Estimated Glomerular Filt Rate 146 ml/min (>60); GFR (African American) 177 ML/MIN (>60); Globulin 2.9 g/dL (1.3-3.2); Glucose 107 mg/dl (74-100); Iron 70 ug/dL (37-170); Total Protein,Serum 7.5 g/dl (6.3-8.2); Triglycerides 133 mg/dl (30-150)
[2025-03-31 11:59] LABS: HDL Cholesterol 43 mg/dl (40-60)
[2025-03-31 12:08] LABS: Total Iron Binding Capacity 374 ug/dL (265-497)
[2025-03-31 12:17] LABS: 25-OH Vitamin D, Total 23.8 ng/mL (30-100)
[2025-03-31 12:28] LABS: Thyroid Stimulating Hormone 0.99 uIU/mL (0.465-4.68)
[2025-03-31 12:32] LABS: Ferritin 12.9 ng/ml (6.24-137)
[2025-03-31 13:15] LABS: Folate > 20.00 ng/mL
[2025-03-31 13:47] LABS: Vitamin B12 347 pg/mL (239-931)
== END 2025-03-31 23:59 | disposition home or self-care (01) ==
LOC: LAB 10:35
PROVIDERS: PCP Physician Assistant; Visit Provider Physician Assistant
DX: R42 Dizziness and giddiness (principal); Z11.59 Encounter for screening for other viral diseases; Z11.4 Encounter for screening for human immunodeficiency virus [HIV]
CPT/HCPCS: 36415; 80053; 80061; 82306; 82607; 82728; 82746; 83540; 83550; 84443; 85025; 87389; 87522

== ENCOUNTER 2025-04-27 10:00 | Outpatient (CLI) | payer OTHER, SELFPAY ==
--- OUTSIDE RECORDS SUMMARY | 2025-04-27 10:04 | XMS_ITS | Clinical Summary ---
Author Organization [facility] [place] Address [address] [address] Phone Care Team Providers Care Director Of Loss Prevention Name Role Phone Unavailable Primary Care Provider [...]
--- NOTE | 2025-04-27 10:30 | CA_ITS ---
APPROVED REPORT Exam: Exercise Treadmill Technologist: Brittni Gongora Ht: 5 ft 0 in Wt: 192 lbs BSA: 1.83 m2 HR: 96 bpm BP: 134/76 mmHg Stress Test Details Test: Exercise stress testing was performed using a Everett protocol. HR Resting HR: 96 bpm Max Heart Rate (APMHR): 191 bpm Max HR Achieved: 161 bpm Target HR (85% APMHR): 162 bpm % of APMHR: 84 Recovery HR: 113 bpm HR response to stress: Normal HR response to stress BP Resting BP: 134.0/76.0 mmHg Max BP: 140.0/78.0 mmHg Recovery BP: 121.0/76.0 mmHg BP response to stress: Normal blood pressure response to stress. ECG Resting ECG: sinus rhythm, no ectopy. Stress EC.[address] depression Clinical Exercise duration: 6:10 min Exercise capacity: 7.1 METs Overall Exercise Capacity for Age: Fair Stress ECG Conclusion Symptoms: None Arrhythmias/Ectopy: None ST-T Changes: 0.[address] depression CONCLUSION Fair exercise capacity. Good HR and BP response to exercise. No evidence of ischemia on ECG at peak stress. Electronically signed by : Ignacia Morgan MD 04/28/2025 01:36:29
--- NOTE | 2025-04-27 11:00 | CA_ITS ---
APPROVED REPORT EXAM: Comprehensive 2D, Doppler, and color-flow Echocardiogram Hemodialysis Lab Technician: Hailee Boss CRT Ht: 5 ft 0 in Wt: 192lbs BSA: 1.83 BP: 120/75 mmHg Indications: Abnormal ECG, Chest Pain 2D Dimensions LA Volume 26.80 mL LA Volume Index 14.30 mL/m2 (M/F) 16-34 M-Mode Dimensions RVDd 1.79 cm (0.9-2.6) LA Diam 3.10 cm (1.9-4.0) LVDd 4.57 cm (3.5-5.7) LVDs 3.37 cm (3.5-5.7) IVSd 1.13 cm (0.6-1.1) PWd 1.05 cm (0.6-1.1) EF (Teich) 51.60% FS 26.30% EDV (Teich) 95.90 mL TAPSE 2.40 (<1.7) ESV (Teich) 46.40 mL LV Diastology E Decel Time 73 (160-240 msec) E/A Ratio 1.21 MED A' 9.20 cm/s LAT A' 10.40 cm/s Aortic Valve AO Peak GR. 6.30 mmHg Mitral Valve MV A Velocity 76.0 (40-130 cm/s) E/A Ratio 1.21 Pulmonary Valve PV Peak Velocity 98.0 (50-150 cm/s) Tricuspid Valve TR P. Velocity 153.00 cm/s RAP Estimate 10.00 mmHg RVSP 19.30 mmHg Left Ventricle The left ventricle is normal size. Left ventricular systolic function is normal. The left ventricular ejection fraction is within the normal range. There is normal left ventricular wall thickness. There is normal LV segmental wall motion. The left ventricular diastolic function is normal. LVEF is 55% Right Ventricle The right ventricle is normal size. The right ventricular systolic function is normal. Atria The left atrium size is normal. The right atrium size is normal. There is no color Doppler evidence of interatrial shunt. Aortic Valve The aortic valve opens well. There is no hemodynamically significant aortic valvular stenosis. No aortic regurgitation is present. Mitral Valve The mitral valve is normal in structure. No evidence of mitral valve stenosis. Trace mitral regurgitation is present. Tricuspid Valve The tricuspid valve leaflets are thin and pliable. Trace tricuspid regurgitation. There is insufficient TR jet to estimate RVSP. Pulmonic Valve The pulmonary valve is grossly normal in structure. Trace pulmonic valve regurgitation is present. Great Vessels The aortic root is normal in size. IVC is normal in size and collapses >50% with inspiration. Pericardium There is no pericardial effusion. Other Information Study Quality: Fair Conclusion Normal biventricular systolic function. No significant valvular stenosis or regurgitation. Electronically signed by : Ignacia Morgan MD 04/27/2025 15:14:16
== END 2025-04-27 23:59 | disposition home or self-care (01) ==
LOC: RT 10:00
PROVIDERS: PCP Physician Assistant; Visit Provider Physician Assistant
DX: R94.31 Abnormal electrocardiogram [ECG] [EKG] (principal); R07.9 Chest pain, unspecified
CPT/HCPCS: 93016; 93017; 93018; 93306

== ENCOUNTER 2025-05-11 07:14 | Outpatient (CLI) | payer OTHER, SELFPAY ==
--- OUTSIDE RECORDS SUMMARY | 2025-05-11 07:16 | XMS_ITS | Clinical Summary ---
Author Organization [facility] [place] Address [address] [address] Phone Care Team Providers Care Player Development Executive Name Role Phone Unavailable Primary Care Provider [...] Screening 2016 Pap Smear 2016 COVID-19 Vaccine (1 - 2023-2 5 season) 2025 Influenza Vaccine (#1) 2025 Meningococcal B Vaccine Aged Out No l onger eligible based on patient's age to complete this topic Pneumococcal Vaccine 0-49 Aged Out No longer eligible based on patient's age to complete this topic
--- NOTE | 2025-05-11 07:30 | US_ITS ---
FINAL REPORT CLINICAL HISTORY: Right upper quad pain COMPARISON: None FINDINGS: Sonographic images of the right upper quadrant were obtained. The pancreas is partially obscured.The liver has an unremarkable appearance. There is an echogenic nonmobile nonshadowing focus in the fundus of the gallbladder measuring 7 mm favored to represent a polyp. A small amount of sludge is present in the gallbladder. There is no evidence of wall thickening. There is no evidence of biliary ductal dilatation.The common duct measures 2 mm. Limited images of the right kidney are unremarkable. IMPRESSION: Gallbladder polyp and sludge. Reviewed, Interpreted and Dictated by Marco Moreno MD Transcribed by Edda Colon Authenticated and [facility]
== END 2025-05-11 23:59 | disposition home or self-care (01) ==
PROVIDERS: PCP Physician Assistant; Visit Provider Surgery
DX: K82.8 Other specified diseases of gallbladder (principal); K82.4 Cholesterolosis of gallbladder; R07.9 Chest pain, unspecified; R94.31 Abnormal electrocardiogram [ECG] [EKG]; R00.0 Tachycardia, unspecified
CPT/HCPCS: 76705; 93270; 93272